=== PATIENT | female | born 1935 | race Caucasian/White ===

== ENCOUNTER 2017-01-13 12:16 | Emergency (ER) | payer MEDICARE ==
[~2017-01-13] VITALS: Ht 162.6 cm; Wt 80.0 kg
[~2017-01-13 12:16] MED LIST: CALC600T34 PO; ESTR.3 PO; FISH1000 PO; MINO50CA PO; RANI150 PO; TAB-TAB PO; TRIA37.512 PO
[2017-01-13 12:19] VITALS: BP 164/70; PULSE 82; RESP 16; TEMP 98.4; O2SAT 100
[2017-01-13] MEDS ORDERED: METH2.5T PO (12:35)
[2017-01-13] MEDS ORDERED: AMLO5TAB2 PO (12:35)
[2017-01-13] MEDS ORDERED: FOLI800T PO (12:35)
[2017-01-13] MEDS ORDERED: DOCU100C PO (12:35)
[2017-01-13] MEDS ORDERED: VITA100T65 PO (12:35)
[2017-01-13] MEDS ORDERED: VALS320T6 PO (12:35)
[2017-01-13] MEDS ORDERED: FERR200T PO (12:35)
[2017-01-13] MEDS ORDERED: CALCTAB19 PO (12:35)
[2017-01-13] MEDS ORDERED: MULTTAB67 PO (12:35)
--- NOTE | 2017-01-13 12:53 | PD ---
HPI Chief Complaint: Fall Time Seen by Provider: 12:49 Travel History International Travel<30 days: No Contact w/Intl Traveler<30days: No Traveled to known affect area: No History of Present Illness HPI This patient complains of low back pain. She lost her balance and stumbled when closing a door and fell backwards. Duration 2 hours. Severity of symptoms is moderate. She is ambulatory. She complains of some low midline back pain. She also hit the back or head but has no headache or LOC or neck pain. She takes no blood thinners. PFSH Past Medical History Autoimmune Disease: Yes (RAYNAUD'S, RA) Cancer: Yes (LYMPHOMA) Cardiovascular Problems: Yes (HTN, IRREGULAR HEART BEAT) Diabetes: No (HYPOGLYCEMIA) GERD: Yes Glaucoma: No Hepatitis: No Hiatal Hernia: No Hypertension: Yes Thyroid Disease: No Influenza Vaccination: Yes ?: Not Past Surgical History Cholecystectomy: Yes Genitourinary Surgery: Yes (BLADDER PROCEDURE) Gynecologic Surgery: Yes (HYSTERECTOMY) Hysterectomy: Yes Oral Surgery: Yes (T&A) Pacemaker: No Tonsillectomy: Yes Tympanostomy Tube: Yes Other Surgery: Yes (HEMORRHOIDECTOMY) Social History Alcohol Use: Yes ("seldom") Tobacco Use: No Substance Use: No Allergies-Medications (Allergen,Severity, Reaction): Coded Allergies: Levaquin (Verified Allergy, Intermediate, EFFECTED EYESIGHT PER PT. , 01/13) Reported Meds & Prescriptions Reported Meds & Active Scripts Active Reported Docusate Sodium 100 Mg Cap 100 Mg PO BID Feosol (Ferrous Sulfate) 200 Mg Tab 200 Mg PO DAILY Vitamin E 100 Unit Tab 100 Units PO DAILY Valsartan-Hydrochlorothiazide 320-25 Mg Tab 1 Tab PO DAILY Amlodipine (Amlodipine Besylate) 5 Mg Tab 5 Mg PO DAILY Multiple Vitamin 1 Tab 1 Tab PO DAILY Calcium 600+D 200 (Calcium Carbonate-Vitamin D) 600-200 Mg-Unit Tab 1 Tab PO DAILY Folic Acid 800 Mcg Tab 1 Mg PO DAILY Methotrexate 2.5 Mg Tab 12.5 Mg PO Q7D Review of Systems General / Constitutional: No: Fever HENT: No: Headaches Cardiovascular: No: Chest Pain or Discomfort Physical Exam Narrative NEUROLOGICAL: Awake and alert. Pupils are equal round and reactive. Motor and sensory grossly within normal limits. Five out of 5 muscle strength in all muscle groups. Normal speech. NECK: Symmetrical appearance, midline trachea. No mass or crepitus. Thyroid without enlargement, tenderness, or mass. SKIN: Focused skin assessment reveals no rash or ulcers. Skin is warm and dry. Palpation shows no induration or nodules. Back: No bruising or deformity Data Data Last Documented VS Vital Signs Date Time Temp Pulse Resp B/P Pulse Ox O2 Delivery O2 Flow Rate FiO2 01/13/17 12:19 98.4 82 16 164/70 100 Orders Spine, Lumbar - Ltd (Ap & Lat) (01/13/17 ) MDM Medical Decision Making Medical Screen Exam Complete: Yes Emergency Medical Condition: Yes Medical Record Reviewed: Yes Differential Diagnosis Compression fracture, pelvic fracture, contusion Narrative Course I have reviewed the patient's electronic medical record. Patient neurologically intact. No objective findings on exam. I reviewed her lumbar spine x-rays which show the possibility of a mild compression deformity L1. Importantly, she has no pain in this region. Her pain is much slower around L5 in the midline. I suspect this is an incidental finding I wrote her some tramadol. The patient was advised to follow up with their physician and return if they worsen. Diagnosis Primary Impression: Fall due to stumbling Qualified Code: W01.0XXA - Fall due to stumbling, initial encounter Additional Impression: Back pain at L4-L5 level Additional Instructions: The patient was advised to follow up with their physician and return if they worsen. The patient was warned about potential sedation for the medications they will receive on prescription. Med/Other Pt SpecificInfo: Prescription(s) given Scripts Tramadol 50 Mg Tab50 Mg PO Q6H PRN (PAIN) #20 TAB Ref 0 Prov:James Abreu MD 01/13/17 Disposition: 01 DISCHARGE HOME Condition: Stable James Abreu MD Jan 13, 2017 12:53
--- NOTE | 2017-01-13 13:21 | RADRPT ---
EXAM DATE/TIME: 01/13/2017 12:53 [facility] COMPARISON: No previous studies available for comparison. INDICATIONS : Lumbar spine pain post fall. MEDICAL HISTORY : Hypertension. Lymphoma. Gastroesophageal reflux disease. Raynaud's disease. irregular heart beat. diabetic. SURGICAL HISTORY : Tonsillectomy. Cholecystectomy. Hysterectomy. Hemorrohidectomy. Tympanostomy tube. Bladder procedure. Right knee arthroplasty. ENCOUNTER: Initial ACUITY: 1 day PAIN SCORE: 8/10 LOCATION: lumbar spine FINDINGS: Alignment is satisfactory. There is a mild severity compressive deformity involving L1 with slight co ncave depression of the superior endplate. No definite retropulsion. Mild disruption of the anterior cortex visible. There is mild degenerative change present throughout with disc space narrowing and sm all endplate osteophytes at all visualized levels. CONCLUSION: Mild severity compression injury at L1. Stan Jackson MD on January 13, 2017 at 13:16 Board Certified Radiologist. This report was verified electronically.
[2017-01-13] MEDS ORDERED: TRAM50TA PO (13:30)
== END 2017-01-13 14:00 | disposition home or self-care (01) ==
LOC: PHEFT 12:16
DX: M54.5 Low back pain (principal); I73.00 Raynaud's syndrome without gangrene; I10 Essential (primary) hypertension; E11.9 Type 2 diabetes mellitus without complications; K21.9 Gastro-esophageal reflux disease without esophagitis; W01.0XXA Fall on same level from slipping, tripping and stumbling without subsequent striking against object, initial encounter; Y93.89 Activity, other specified; Y92.9 Unspecified place or not applicable
CPT/HCPCS: 72100; 99283

== ENCOUNTER 2018-03-29 13:27 | Inpatient (IN) ==
--- NOTE | 2018-03-29 14:12 | ED ---
HPI General Chief complaint: Respiratory Symptoms Stated complaint: Dr sent/pneumonia on antibiotics Source: patient Mode of arrival: ambulatory Limitations: no limitations History of Present Illness HPI narrative: 82yo F with PMH of RA, B cell lymphoma (3 years ago) was told to come to the ED as per her PMD Dr. Lugo. Pt has been feeling sob for about 8 days and was evaluated by her PMD Dr. Lugo on 03/24/18 and given prednisone and azithromcyin. Pt said she finished the azithromycin and still not feeling better. She had an outpatient CT chest without contrast on 01/23/18 that showed fairly extensive pleural based disease and loculated and nonloculated pleural effusion on the right. After receiving the CT results, her PMD told her to come to the ED. Pt denies any fever, worsening cough, hemoptysis, history of PE /DVT, chest pain, n/v, abdominal pain, focal weakness or numbness. Related Data Home Medications Medication Instructions Recorded Confirmed B12 03/29/18 Multi Vitamin 03/29/18 Prilosec 20 mg PO DAILY 03/29/18 03/29/18 Probiotic 03/29/18 Stool Softener 03/29/18 Vitamin C 03/29/18 amlodipine 2.5 mg PO BID 03/29/18 03/29/18 cranberry 03/29/18 folic acid 03/29/18 iron 65 mg PO DAILY 03/29/18 03/29/18 methenamine mandelate 500 mg PO DAILY 03/29/18 03/29/18 methotrexate 2.5 mg PO WEEKLY 03/29/18 03/29/18 metoprolol succinate 25 mg PO BID 03/29/18 03/29/18 Allergies Allergy/AdvReac Type Severity Reaction Status Date / Time levofloxacin Allergy Intermediate EFFECTED Verified 03/29/18 13:55 EYESIGHT PER PT. Review of Systems ROS: all other systems reviewed are negative [facility] Medical History Medical History Cataract (Acute) GERD (gastroesophageal reflux disease) (Acute) H/O thyroid cyst (Acute) H/O: hysterectomy (Acute) Hemorrhage following tonsillectomy (Acute) Hypertension (Acute) Rheumatoid arthritis (Acute) Spleen cancer (Acute) Surgical History Surgical History H/O mastoidectomy (Acute) History of hemorrhoidectomy (Acute) Social History Social History Substance History: No History of Abuse Second Hand Smoke Exposure: No Smoking Status: Former smoker Tobacco Type: Cigarettes How Often Do You Have a Drink Containing Alcohol: Never Recent Travel in [place] within the Last 8 Weeks: No Recent Out of Country Travel within the Last 8 Weeks: No Immunization History Tetanus Immunization: <5 Years Hx Influenza Vaccine This Season: No Exam Narrative Exam Narrative: GENERAL: 82yo F not in distress. SKIN: Focused skin assessment warm/dry. HEAD: Atraumatic. Normocephalic. EYES: Pupils equal and round. No scleral icterus. No injection or drainage. ENT: No nasal bleeding or discharge. Mucous membranes pink and moist. NECK: Trachea midline. No JVD. CARDIOVASCULAR: Regular rate and rhythm. No murmur appreciated. RESPIRATORY: No accessory muscle use. Decreased breath sound in right lower lung. O2 sat 95% on RA. GASTROINTESTINAL: Abdomen soft, non-tender, nondistended. MUSCULOSKELETAL: No obvious deformities. No clubbing. No cyanosis. +Bilateral lower extremity edema. NEUROLOGICAL: Awake and alert. No obvious cranial nerve deficits. Motor grossly within normal limits. Normal speech. PSYCHIATRIC: Appropriate mood and affect; insight and judgment normal. Course Initial Documented Vital Signs Temperature 98.7 F 03/29/18 13:33 Pulse Rate 113 H 03/29/18 13:33 Respiratory Rate 20 03/29/18 13:33 Blood Pressure 151/80 H 03/29/18 13:33 Pulse Oximetry 95 03/29/18 13:33 Last Documented Vital Signs Temperature 98.6 F 03/29/18 16:00 Pulse Rate 107 H 03/29/18 16:00 Respiratory Rate 18 03/29/18 16:00 Blood Pressure 185/76 H 03/29/18 16:00 Pulse Oximetry 95 03/29/18 16:00 Medical Decision Making [facility] Narrative Medical decision making narrative: 82yo F with worsening sob for about 8 days. Pt had an outpatient CT that showed extensive pleural effusion on right that is both loculated and nonloculated. I discussed with pt's primary care physician and she is concern since pt is not getting better and wants to have the fluid drain and evaluated. Labs reviewed, WBC 12. H/H normal. Mild hyponatremia at 131. Troponin negative. CXR showed persistent right pleural effusion which appears to contain both free flowing and loculated components. Will admit for pulmonary evaluation and likely pleurocentesis. Discussed with Dr. Caballero and accepted to his service. Medical Screen Exam Complete: Yes Emergency Medical Condition: Yes Differential Diagnosis Differential Diagnosis: Exudative vs. transudative pleural effusion vs. empyema Lab Data Result diagrams: 03/29/18 14:24 03/29/18 14:24 Lab Results 03/29/18 03/29/18 03/29/18 Range/Units 14:24 14:24 14:24 CBC w Diff Auto diff final WBC 12.0 H (4.0-11.0) th/mm3 RBC 4.35 (4.00-5.30) mil/mm3 Hgb 13.2 (11.6-15.3) gm/dL Hct 39.0 (35.0-46.0) % MCV 89.7 (80.0-100.0) fL MCH 30.5 (27.0-34.0) pg MCHC 34.0 (32.0-36.0) % RDW 13.9 (11.6-17.2) % Plt Count 448 (150-450) th/mm3 MPV 8.2 (7.0-11.0) fL Neut % (Auto) 78.9 H (16.0-70.0) % Lymph % (Auto) 11.2 (9.0-44.0) % Gillespie % (Auto) 8.7 H (0.0-8.0) % Eos % (Auto) 0.7 (0.0-4.0) % Baso % (Auto) 0.5 (0.0-2.0) % Neut # (Auto) 9.5 H (1.8-7.7) th/mm3 Lymph # (Auto) 1.3 (1.0-4.8) th/mm3 Gillespie # (Auto) 1.0 H (0.0-0.9) th/mm3 Eos # (Auto) 0.1 (0.0-0.4) th/mm3 Baso # (Auto) 0.1 (0.0-0.2) th/mm3 WBC Differential . Differential Comment . PT 10.0 (9.8-11.6) sec INR 1.0 Ratio APTT 24.5 (24.3-30.1) sec Sodium 131 L (136-145) meq/L Potassium 3.4 L (3.5-5.1) meq/L Chloride 95 L (98-107) meq/L Carbon Dioxide 24.1 (21.0-32.0) meq/L Anion Gap 12 (5-15) meq/L BUN 17 (7-18) mg/dL Creatinine 0.79 (0.50-1.00) mg/dL Estimated GFR 69 L (>89) mL/min Random Glucose 126 H (74-106) mg/dL Calcium 8.7 (8.5-10.1) mg/dL Troponin I Less than 0.02 L (0.02-0.05) ng/mL Imaging Data Radiologist's impression: Chest X-Ray 03/29/18 14:06 CONCLUSION: Persistent right pleural effusion which appears to contain both free flowing and loculated components. Otherwise stable chest. ECG Data EKG Prior to Arrival: No Attestation: I personally reviewed and interpreted this ECG as follows: Interpretation: NSR 97bpm. Normal axis. MD interval 201ms. Q wave III, aVF. TWI V2. No significant ST elevation or depression. Discharge Plan Discharge Disposition Patient Disposition: 30 Still Patient Discharge Details Diagnosis: Pleural effusion Physicians Team ED Provider: Sri Newell Primary Care Provider: Michelle Lugo Attending Provider: Paxton Caballero Other Providers: Carlos Valente Status ED Status: Left Department Discharge Information Discharge Date/Time: 03/29/18 16:10
[2018-03-29 14:53] LABS: Baso # (Auto) 0.1 th/mm3 (0.0-0.2); Baso % (Auto) 0.5 % (0.0-2.0); Eos # (Auto) 0.1 th/mm3 (0.0-0.4); Eos % (Auto) 0.7 % (0.0-4.0); Hemoglobin 13.2 gm/dL (11.6-15.3); Lymph # (Auto) 1.3 th/mm3 (1.0-4.8); Lymph % (Auto) 11.2 % (9.0-44.0); Mean Corpuscular Hemoglobin 30.5 pg (27.0-34.0); Mean Corpuscular Volume 89.7 fL (80.0-100.0); Mean Platelet Volume 8.2 fL (7.0-11.0); Mono % (Auto) 8.7 % (0.0-8.0); Neut # (Auto) 9.5 th/mm3 (1.8-7.7); Neut % (Auto) 78.9 % (16.0-70.0); Platelet Count 448 th/mm3 (150-450); Red Blood Count 4.35 mil/mm3 (4.00-5.30); Red Cell Distribution Width 13.9 % (11.6-17.2)
[2018-03-29 15:01] LABS: Chloride 95 meq/L (98-107); Potassium 3.4 meq/L (3.5-5.1); Sodium 131 meq/L (136-145)
[2018-03-29 15:04] LABS: Anion Gap 12 meq/L (5-15); Blood Urea Nitrogen 17 mg/dL (7-18); Calcium 8.7 mg/dL (8.5-10.1); Carbon Dioxide 24.1 meq/L (21.0-32.0); Glucose,Random 126 mg/dL (74-106)
--- NOTE | 2018-03-29 15:05 | XR ---
EXAM DATE: 03/29/2018 2:30 PM EDT AGE/SEX: 82 years / Female INDICATIONS: Short of breath. CLINICAL DATA: This is the patient's initial encounter. Patient reports that signs and symptoms have been present for 1 day and indicates a pain score of 2/10. MEDICAL/SURGICAL HISTORY: Rheumatoid arthritis. None. COMPARISON: POI, XR CHEST PA AND LAT, 03/24/2018. . FINDINGS: Significant opacity and fluid remain evident in the right lung base. Recent CT demonstrated what appe ared to be as a both free flowing and loculated effusions. There is no significant change demonstrate d compared to the most recent chest radiograph. Left lung remains clear. Heart and mediastinal structures are stable. CONCLUSION: Persistent right pleural effusion which appears to contain both free flowing and loculated components . Otherwise stable chest. Electronically signed by: Ryan Ramachandran MD 03/29/2018 3:03 PM EDT
[2018-03-29 15:06] LABS: Activated Partial Thrombo Time 24.5 sec (24.3-30.1)
[2018-03-29 15:07] LABS: Glomerular Filtration Rate 69 mL/min (>89)
[2018-03-29] MEDS ORDERED: Potassium Chloride 25 MEQ Effervescent Tablet PO ONE (16:00)
--- NOTE | 2018-03-29 16:03 | P.HPIM ---
History of Present Illness Primary Care Physician: Michelle Lugo MD Chief Complaint: Shortness of breath History of Present Illness: The patient is an 82-year-old female with a past medical history of rheumatoid arthritis and cancer of the spleen who is presenting to the hospital with shortness of breath. The patient states that a week ago from Thursday she started to develop increased work with breathing. She says when she takes deep breath it is harder to take that breath. She has been following up with her primary care doctor who prescribed a Z-Philip and prednisone. The patient had a chest x-ray and then as that was abnormal she obtained a CT scan. Today she was called with the results of her CT scan which showed fluid or pneumonia and was told to come to the emergency department. The patient states that she had pneumonia in her right lung 10 years ago. She denies any fevers. She has not had any mucus production. She has minimal cough. She does endorse clear nasal discharge at times. Inpatient Certification: I certify that the inpatient services were ordered in accordance with Medicare regulations governing the order. This includes certification that hospital inpatient services are reasonable and necessary and in the case of services not specified as inpatient-only under 42 CFR 419.22(n), that they are appropriately provided as inpatient services in accordance to with the 2-midnight benchmark under 43 CFR 412.3(e) Estimated Total Length of Stay (Days): 2 Plans for Post Hospital Care: Not yet determined Review of Systems All other systems reviewed negative except as stated in HPI [facility] - History History Provided By: Patient - Medical History Medical History: Medical History (Last Updated 03/29/18 @ 16:03 by Paxton Caballero DO) Cataract GERD (gastroesophageal reflux disease) H/O thyroid cyst H/O: hysterectomy Hemorrhage following tonsillectomy Hypertension Rheumatoid arthritis Spleen cancer - Surgical History Surgical History: Surgical History (Last Updated 03/29/18 @ 13:53 by Mya Samano RN) H/O mastoidectomy History of hemorrhoidectomy - Tobacco History Second Hand Smoke Exposure: No Smoking Status: Former smoker - Alcohol History How Often Do You Have a Drink Containing Alcohol: 2 to 4 times a month - Substance Use History Substance History: No History of Abuse - Travel History Recent Travel in the [place] Within the Last 8 Weeks: No Recent Travel Out of the Country Within the Last 8 Weeks: No - Immunization History Tetanus Immunization: <5 Years Hx Influenza Vaccine This Season: No Medications and Allergies Active Medications: Active Medications Acetaminophen (Tylenol) 650 mg PO Q4H PRN PRN Reason: Temp > 100.4 Amlodipine Besylate (Norvasc) 5 mg PO DAILY BELINDA Ceftriaxone Sodium 1,000 mg/ (Sodium Chloride) 100 mls @ 200 mls/hr IV.SIG Q24H BELINDA Azithromycin 500 mg/ Sodium (Chloride) 250 mls @ 250 mls/hr IV.SIG Q24H BELINDA Metoprolol Tartrate (Lopressor) 25 mg PO BID BELINDA Pantoprazole Sodium (Protonix) 20 mg PO DAILY BELINDA Potassium Bicarb/Potassium Chloride (K-Lyte Cl Eff) 50 meq PO ONCE ONE Stop: 03/29/18 16:01 Last Admin: 03/29/18 15:45 Dose: 50 meq Allergies Allergy/AdvReac Type Severity Reaction Status Date / Time levofloxacin Allergy Intermediate EFFECTED Verified 03/29/18 13:55 EYESIGHT PER PT. Home Medications Medication Instructions Recorded Confirmed Type B12 03/29/18 History Multi Vitamin 03/29/18 History Prilosec 20 mg PO DAILY 03/29/18 03/29/18 History Probiotic 03/29/18 History Stool Softener 03/29/18 History Vitamin C 03/29/18 History amlodipine 2.5 mg PO BID 03/29/18 03/29/18 History cranberry 03/29/18 History folic acid 03/29/18 History iron 65 mg PO DAILY 03/29/18 03/29/18 History methenamine mandelate 500 mg PO DAILY 03/29/18 03/29/18 History methotrexate 2.5 mg PO WEEKLY 03/29/18 03/29/18 History metoprolol succinate 25 mg PO BID 03/29/18 03/29/18 History Exam Vital signs: Vital Signs 03/29/18 13:33 03/29/18 13:35 03/29/18 15:48 Temperature 98.7 F Pulse Rate 113 H 95 H 79 Respiratory Rate 20 18 Blood Pressure 151/80 H 140/81 180/73 H Pulse Oximetry 95 98 97 Intake & Output 03/28/18 03/29/18 03/29/18 18:59 06:59 18:59 Weight 80.7 kg Narrative: GENERAL: Resting comfortably. SKIN: Focused skin assessment warm/dry. HEAD: Atraumatic. Normocephalic. EYES: Pupils equal and round. No scleral icterus. No injection or drainage. ENT: No nasal bleeding or discharge. Mucous membranes pink and moist. NECK: Trachea midline. No JVD. CARDIOVASCULAR: Regular rate and rhythm. No murmur appreciated. RESPIRATORY: No accessory muscle use. Decreased breath sound in right lower lung. GASTROINTESTINAL: Abdomen soft, non-tender, nondistended. MUSCULOSKELETAL: No obvious deformities. No clubbing. No cyanosis. TR bilateral lower extremity edema. NEUROLOGICAL: Awake and alert. No obvious cranial nerve deficits. Motor grossly within normal limits. Normal speech. PSYCHIATRIC: Appropriate mood and affect; insight and judgment normal. Results - Labs CBC & Chem 7: 03/29/18 14:24 03/29/18 14:24 Labs: Short CBC 03/29/18 Range/Units 14:24 WBC 12.0 H (4.0-11.0) th/mm3 Hgb 13.2 (11.6-15.3) gm/dL Hct 39.0 (35.0-46.0) % Plt Count 448 (150-450) th/mm3 BMP 03/29/18 14:24 Sodium 131 L Potassium 3.4 L Chloride 95 L Carbon Dioxide 24.1 BUN 17 Creatinine 0.79 Calcium 8.7 Cardiac Enzymes 03/29/18 Range/Units 14:24 Troponin I Less than 0.02 L (0.02-0.05) ng/mL - Imaging Impressions Chest X-Ray 03/29/18 14:06 CONCLUSION: Persistent right pleural effusion which appears to contain both free flowing and loculated components. Otherwise stable chest. Caprini VTE Risk Assessment Caprini VTE Risk Assessment: Moderate/High Risk (score >= 2) Caprini Risk Assessment Model: Point Value = 1 Point Value = 2 Point Value = 3 Point Value = 5 Age 41-60 Minor surgery BMI > 25 kg/m2 Swollen legs Varicose veins or History of unexplained or recurrent spontaneous Oral contraceptives or hormone replacement Sepsis (< 1 month) Serious lung disease, including pneumonia (< 1 month) Abnormal pulmonary function Acute myocardial infarction Congestive heart failure (< 1 month) History of inflammatory bowel disease Medical patient at bed rest Age 61-74 Arthroscopic surgery Major open surgery (> 45 min) Laparoscopic surgery (> 45 min) Malignancy Confined to bed (> 72 hours) Immobilizing plaster cast Central venous access Age >= 75 History of VTE Family history of VTE Factor V Leiden Prothrombin 38935C Lupus anticoagulant Anticardiolipin antibodies Elevated serum homocysteine Heparin-induced thrombocytopenia Other congenital or acquired thrombophilia Stroke (< 1 month) Elective arthroplasty Hip, pelvis, or leg fracture Acute spinal cord injury (< 1 month) Prophylaxis Regimen: Total Risk Factor Score Risk Level Prophylaxis Regimen 0-1 Low Early ambulation 2 Moderate Order ONE of the following: *Sequential Compression Device (SCD) *Heparin 5000 units SQ BID 3-4 Higher Order ONE of the following medications: *Heparin 5000 units SQ TID *Enoxaparin/Lovenox 40 mg SQ daily (WT < 150 kg, CrCl > 30 mL/min) *Enoxaparin/Lovenox 30 mg SQ daily (WT < 150 kg, CrCl > 10-29 mL/min) *Enoxaparin/Lovenox 30 mg SQ BID (WT < 150 kg, CrCl > 30 mL/min) AND/OR *Sequential Compression Device (SCD) 5 or more Highest Order ONE of the following medications: *Heparin 5000 units SQ TID (Preferred with Epidurals) *Enoxaparin/Lovenox 40 mg SQ daily (WT < 150 kg, CrCl > 30 mL/min) *Enoxaparin/Lovenox 30 mg SQ daily (WT < 150 kg, CrCl > 10-29 mL/min) *Enoxaparin/Lovenox 30 mg SQ BID (WT < 150 kg, CrCl > 30 mL/min) AND *Sequential Compression Device (SCD) Assessment and Plan - Plan Sepsis/ Pleural effusion The pt has been following with her PCP for dyspnea and CT showed "fairly extensive pleural based disease and loculated and nonloculated pleural effusion on the right". She was referred to the ED. She was tachycardic with a leukocytosis of 12. -pulmonology consult. -ceftriaxone and azithromycin IV. -IVFs. -blood cultures. Hypokalemia/ Hyponatremia Likely s/t decreased PO intake. -KCL PO. -IVFs. -follow BMP. HTN Blood pressure has been elevated. -resume home amlodipine and Lopressor. -Vasotec as needed. RA On methotrexate weekly. -continue methotrexate and folate every . PPx: SCDs Code Status: Full
[2018-03-29] MEDS: amLODIPine 5 MG Tablet PO SCH (17:23)
[2018-03-29] MEDS: Azithromycin Inj 500 MG in Sodium Chlor 0.9% Inj 250 ML IV.SIG SCH (18:28)
[2018-03-29] MEDS: Metoprolol Tartrate 25 MG Tablet PO SCH (21:33)
--- NOTE | 2018-03-29 23:12 | MB ---
cc: Carlos Valente MD DATE: 03/29/2018 REQUESTING PHYSICIAN: Dr. Paxton Caballero. REASON FOR CONSULTATION: Pneumonia, pleural effusion. HISTORY OF PRESENT ILLNESS: Ms. Todd is a pleasant 82-year-old female with history of rheumatoid arthritis, cancer of the spleen. She was not feeling well for the last week or [address] Baez. She was given prednisone and Z-EJ. She did not get better. She was sent for a CT scan of the chest done, which shows pleural effusion. She was sent to [facility]. She had a chest x-ray done, which shows right-sided loculated and free pleural effusion. Her CBC shows WBC count 12.0, hemoglobin 13.2, hematocrit 39.0, MCH 18, and platelet count 448. INR 1.0. Sodium 131, potassium 3.4, chloride 95, CO2 of 24, BUN 17, creatinine 0.79. She has occasional cough, no fever, no chest pain. PAST MEDICAL HISTORY: History of rheumatoid arthritis, cancer of the spleen. PAST SURGICAL HISTORY: Mastoidectomy, hysterectomy, cholecystectomy and cyst removed from the thyroid. MEDICATIONS: She is currently taking 1. Amlodipine 5 mg a day. 2. Zithromax 500 mg. 3. Rocephin 1 g a day. 4. Vasotec p.r.n. 5. Metoprolol 25 mg twice a day. 4. Protonix 20 mg a day. ALLERGIES: LEVAQUIN. SOCIAL HISTORY: She used to work as a personal care aide. Has history of smoking, which she quit more than 40 years ago. No alcohol use. She is a , lives alone. FAMILY HISTORY: She had 2 children of her own and 5 stepchildren. REVIEW OF SYSTEMS: Normally she is up around and active. Weight is stable. No DVT found. No seizure, stroke or epilepsy. PHYSICAL EXAMINATION: GENERAL: Pleasant, elderly female, not in any acute distress. VITAL SIGNS: Blood pressure 180/75, heart rate 107, respirations 18, temperature 98.6. HEENT: Pupils are equal and reactive to light. She has a right eye cataract surgery. Oral mucosa and nasal mucosa normal. NECK: Supple. JVD not raised. CHEST: She has dull percussion, decreased breath sounds at the right base. HEART: S1, S2 normal. ABDOMEN: Benign. EXTREMITIES: No edema. IMPRESSION: 1. Right basal infiltrate versus atelectasis. 2. Right pleural effusion. 3. Hypertension. 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 5. Rheumatoid arthritis. PLAN: I discussed with the patient, will get ultrasound-guided right thoracentesis. We will send the pleural fluid for protein, glucose, LDH, cell count and differential, culture and sensitivity and cytology. Continue present antibiotics. Control blood pressure. Further treatment will depend on the course in the hospital. Thank you Dr. Paxton Caballero for this consultation. MD LILY Faulkner/elli , 07:17 PM , 07:25 PM
[2018-03-30 06:39] LABS: Baso % (Auto) 0.4 % (0.0-2.0); Eos # (Auto) 0.2 th/mm3 (0.0-0.4); Eos % (Auto) 1.8 % (0.0-4.0); Hematocrit 40.1 % (35.0-46.0); Hemoglobin 13.8 gm/dL (11.6-15.3); Lymph # (Auto) 2.1 th/mm3 (1.0-4.8); Lymph % (Auto) 17.3 % (9.0-44.0); Mean Corpuscular HGB Conc 34.4 % (32.0-36.0); Mean Corpuscular Hemoglobin 31.8 pg (27.0-34.0); Mean Corpuscular Volume 92.4 fL (80.0-100.0); Mean Platelet Volume 8.1 fL (7.0-11.0); Mono # (Auto) 0.9 th/mm3 (0.0-0.9); Mono % (Auto) 7.6 % (0.0-8.0); Neut % (Auto) 72.9 % (16.0-70.0); Platelet Count 437 th/mm3 (150-450); Red Blood Count 4.34 mil/mm3 (4.00-5.30); Red Cell Distribution Width 13.9 % (11.6-17.2); White Blood Count 12.2 th/mm3 (4.0-11.0)
[2018-03-30 06:45] LABS: Chloride 99 meq/L (98-107); Potassium 4.1 meq/L (3.5-5.1); Sodium 134 meq/L (136-145)
[2018-03-30 06:52] LABS: Anion Gap 8 meq/L (5-15); Blood Urea Nitrogen 15 mg/dL (7-18); Calcium 8.9 mg/dL (8.5-10.1); Carbon Dioxide 27.3 meq/L (21.0-32.0)
[2018-03-30 06:53] LABS: Albumin 3.4 g/dL (3.4-5.0); Glucose,Random 91 mg/dL (74-106)
[2018-03-30 06:56] LABS: Alanine Aminotransferase 21 U/L (10-53); Glomerular Filtration Rate 82 mL/min (>89)
[2018-03-30 06:57] LABS: Aspartate Aminotransferase 18 U/L (15-37)
[2018-03-30 06:58] LABS: Alkaline Phosphatase 70 U/L (45-117); Total Protein 7.1 g/dL (6.4-8.2)
[2018-03-30] MEDS ORDERED: amLODIPine 5 MG Tablet PO SCH (09:00)
--- NOTE | 2018-03-30 09:32 | XR ---
EXAM DATE: 03/30/2018 9:25 AM EDT AGE/SEX: 82 years / Female INDICATIONS: Post right thoracentesis. CLINICAL DATA: This is the patient's subsequent encounter. Patient reports that signs and symptoms h ave been present for 1 day and indicates a pain score of 0/10. MEDICAL/SURGICAL HISTORY: Hypertension. None. COMPARISON: [facility], CHEST 1V SINGLE AP, 03/29/2018. . FINDINGS: A single frontal expiratory view of the chest was performed. Significant improvement in the previousl y seen right-sided effusion. Minimal atelectatic changes remain in the right lung base. No pneumothor ax Left lung remains clear. Accounting for technique, heart size is upper limits of normal. Degenerat carin spurring of the dorsal spine. Osseous structures are otherwise intact.. CONCLUSION: 1. No pneumothorax post right-sided thoracentesis. 2. Significant improvement in the previously seen right-sided effusion. Minimal atelectatic changes remain in the right base and right perihilar distribution. Electronically signed by: Alphonse Brooks MD 03/30/2018 9:30 AM EDT
[2018-03-30] MEDS: Pantoprazole Sodium 20 MG DR Tablet PO SCH (09:38)
[2018-03-30] MEDS: amLODIPine 5 MG Tablet PO SCH (09:39)
[2018-03-30] MEDS: Metoprolol Tartrate 25 MG Tablet PO SCH ×2 (09:39→20:33)
[2018-03-30] MEDS ORDERED: amLODIPine 5 MG Tablet PO ONE (10:26)
--- NOTE | 2018-03-30 10:58 | P.PNIM ---
Subjective Interval history: The pt says she feels a lot better after the thoracentesis. She has been ambulating well. She has some pain at the thoracentesis site. No acute concerns. Physical Exam Vital signs: Vital Signs 03/29/18 13:33 03/29/18 13:35 03/29/18 15:48 Temperature 98.7 F Pulse Rate 113 H 95 H 79 Respiratory Rate 20 18 Blood Pressure 151/80 H 140/81 180/73 H Pulse Oximetry 95 98 97 03/29/18 16:00 03/29/18 20:00 03/30/18 00:00 Temperature 98.6 F 97.8 F 96 F L Pulse Rate 107 H 84 82 Respiratory Rate 18 20 20 Blood Pressure 185/76 H 146/67 H 159/74 H Pulse Oximetry 95 94 L 97 03/30/18 07:45 03/30/18 09:39 03/30/18 09:55 Temperature 96.2 F L 97 F L 97 F L Pulse Rate 80 87 90 Respiratory Rate 20 20 20 Blood Pressure 147/66 H 174/88 H 167/76 H Pulse Oximetry 97 94 L 98 Intake & Output 03/29/18 03/30/18 03/30/18 18:59 06:59 18:59 Intake Total 760 / 760 730 / 730 300 / 300 Balance 760 / 760 730 / 730 300 / 300 Weight 80.7 kg 80.4 kg Intake: IV 100 / 100 250 / 250 Azithromycin Inj 500 MG In NS 250 / 250 Inj 250 ML @ 250 mls/hr IV.SIG Q24H [facility] Rx#:[id number] Rocephin Inj 1,000 MG In NS Inj 100 / 100 100 ML @ 200 mls/hr IV.SIG Q24H [facility]INDA Rx#:[id number] Oral 660 / 660 480 / 480 300 / 300 Other: # Voids 3 4 1 # Bowel Movements 0 Narrative: GENERAL: Resting comfortably. SKIN: Focused skin assessment warm/dry. HEAD: Atraumatic. Normocephalic. EYES: Pupils equal and round. No scleral icterus. No injection or drainage. ENT: No nasal bleeding or discharge. Mucous membranes pink and moist. NECK: Trachea midline. No JVD. CARDIOVASCULAR: Regular rate and rhythm. No murmur appreciated. RESPIRATORY: No accessory muscle use. CTAB. GASTROINTESTINAL: Abdomen soft, non-tender, nondistended. MUSCULOSKELETAL: No obvious deformities. No clubbing. No cyanosis. TR bilateral lower extremity edema. NEUROLOGICAL: Awake and alert. No obvious cranial nerve deficits. Motor grossly within normal limits. Normal speech. PSYCHIATRIC: Appropriate mood and affect; insight and judgment normal. Results - Labs CBC & Chem 7: 03/30/18 05:42 03/30/18 05:42 Laboratory Results - last 24 hr 03/29/18 03/29/18 03/29/18 14:24 14:24 14:24 CBC w Diff Auto diff final WBC 12.0 H RBC 4.35 Hgb 13.2 Hct 39.0 MCV 89.7 MCH 30.5 MCHC 34.0 RDW 13.9 Plt Count 448 MPV 8.2 Neut % (Auto) 78.9 H Lymph % (Auto) 11.2 [place] % (Auto) 8.7 H Eos % (Auto) 0.7 Baso % (Auto) 0.5 Neut # (Auto) 9.5 H Lymph # (Auto) 1.3 [place] # (Auto) 1.0 H Eos # (Auto) 0.1 Baso # (Auto) 0.1 WBC Differential . Differential Comment . PT 10.0 INR 1.0 APTT 24.5 Sodium 131 L Potassium 3.4 L Chloride 95 L Carbon Dioxide 24.1 Anion Gap 12 BUN 17 Creatinine 0.79 Estimated GFR 69 L Random Glucose 126 H Calcium 8.7 Total Bilirubin AST ALT Alkaline Phosphatase Lactate Dehydrogenase Troponin I Less than 0.02 L Total Protein Albumin 03/29/18 03/30/18 03/30/18 14:34 05:42 05:42 CBC w Diff Auto diff final WBC 12.2 H RBC 4.34 Hgb 13.8 Hct 40.1 MCV 92.4 MCH 31.8 MCHC 34.4 RDW 13.9 Plt Count 437 MPV 8.1 Neut % (Auto) 72.9 H Lymph % (Auto) 17.3 [place] % (Auto) 7.6 Eos % (Auto) 1.8 Baso % (Auto) 0.4 Neut # (Auto) 9.0 H Lymph # (Auto) 2.1 [place] # (Auto) 0.9 Eos # (Auto) 0.2 Baso # (Auto) 0.0 WBC Differential . Differential Comment . PT INR APTT Sodium 134 L Potassium 4.1 Chloride 99 Carbon Dioxide 27.3 Anion Gap 8 BUN 15 Creatinine 0.68 Estimated GFR 82 L Random Glucose 91 Calcium 8.9 Total Bilirubin 0.3 AST 18 ALT 21 Alkaline Phosphatase 70 Lactate Dehydrogenase 213 Troponin I Total Protein 7.0 7.1 Albumin 3.4 - Imaging Impressions Chest X-Ray 03/29/18 14:06 CONCLUSION: Persistent right pleural effusion which appears to contain both free flowing and loculated components. Otherwise stable chest. Chest X-Ray 03/30/18 00:00 CONCLUSION: 1. No pneumothorax post right-sided thoracentesis. 2. Significant improvement in the previously seen right-sided effusion. Minimal atelectatic changes remain in the right base and right perihilar distribution. Assessment and Plan - Plan Sepsis/ Pleural effusion The pt has been following with her PCP for dyspnea and CT showed "fairly extensive pleural based disease and loculated and nonloculated pleural effusion on the right". She was referred to the ED. She was tachycardic with a leukocytosis of 12. Pulmonology and IR consults appreciated. S/p thoracentesis . -ceftriaxone and azithromycin IV. -IVFs. -blood cultures. -follow fluid studies. -follow up with pulmonology. Hypokalemia/ Hyponatremia Likely s/t decreased PO intake. -KCL PO. -IVFs. -follow BMP. Improved. HTN Blood pressure has been elevated. -resume home amlodipine and Lopressor. Increase amlodipine. -Vasotec as needed. RA On methotrexate weekly. -continue methotrexate and folate every . PPx: SCDs
[2018-03-30 11:17] LABS: RBC,Pleural Fluid 94 /mm3 (0-0)
[2018-03-30 11:18] LABS: Eosinophils,Pleural Fluid 13 %; Lymphocytes,Pleural Fluid 4 %; Neutrophils,Pleural Fluid 73 %
--- NOTE | 2018-03-30 11:38 | US ---
EXAM DATE: 03/30/2018 9:44 AM EDT AGE/SEX: 82 years / Female INDICATIONS: Right pleural effusion. CLINICAL DATA: This is the patient's initial encounter. Patient reports that signs and symptoms have been present for 1 day and indicates a pain score of 0/10. MEDICAL/SURGICAL HISTORY: Hypertension. Gastroesophageal reflux disease. Cancer Hysterectomy. Tonsillectomy. Hemorrhoidectomy. COMPARISON: No prior exams available for comparison. FLUID: Total volume of 1,200 cc of clear, yellow fluid was removed. Fluid was sent to lab for ordered studies. . . TECHNIQUE: Ultrasound guidance for thoracentesis. Thoracentesis. The risks, benefits, and alternatives to ultrasound guided thoracentesis were explained to the patien t in lay simple terms, including the risk of bleeding and infection. Written and verbal informed con sent was obtained. Appropriate area for right thoracentesis was marked under ultrasound guidance with the patient in the upright position. Overlying skin was prepped and draped in the usual sterile fashion and with local anesthetic, a dermatotomy was made with an 11 blade scalpel. A 6 [place] thoracentesis catheter was placed in the pleural space and fluid was removed. Catheter was then removed and a sterile dressing applied. There were no immediate complications. The patient tolerated the procedure well and the lef t the ultrasound suite in stable condition. Chest radiograph is to be obtained. CONCLUSION: 1. Right-sided thoracentesis as above Electronically signed by: Alphonse Brooks MD 03/30/2018 11:37 AM EDT
[2018-03-30] MEDS: Acetaminophen 325 MG Tablet PO PRN ×2 (11:46→20:33)
--- NOTE | 2018-03-30 14:23 | ECG ---
Date Performed: 03/29/2018 Time Performed: 14:19:07 PTAGE: 82 years EKG: Sinus rhythm WITH FREQUENT SUPRAVENTRICULAR PREMATURE COMPLEXES LOW QRS VOLTAGE IN PRECORDIAL LEADS ABNORMAL RHYT ECG Compared to PREVIOUS TRACING PACs are new, otherwise largely unchanged PREVIOUS TRACIN07/16/2009 12.47 DOCTOR: Lisandor Dunn Interpretating Date/Time 03/30/2018 14:21:43
[2018-03-30] MEDS ORDERED: METHOTREXATE 2.5 MG PO SCH (14:30)
[2018-03-30] MEDS: Folic Acid 1 MG Tablet PO SCH (15:32)
[2018-03-30] MEDS: Ascorbic Acid 500 MG Tablet PO SCH (15:32)
[2018-03-30] MEDS: Azithromycin Inj 500 MG in Sodium Chlor 0.9% Inj 250 ML IV.SIG SCH (16:35)
[2018-03-30] MEDS ORDERED: METHENAMINE MANDELATE 500 MG PO SCH (17:00)
--- NOTE | 2018-03-30 18:12 | P.PNPL ---
Subjective Interval history: 82 YOWF with basal infilt, pl eff, RA, h/o ca spleen Had TC [address] fluid exudative Feels much better Physical Exam Vital signs: Vital Signs 03/29/18 20:00 03/30/18 00:00 03/30/18 07:45 Temperature 97.8 F 96 F L 96.2 F L Pulse Rate 84 82 80 Respiratory Rate 20 20 20 Blood Pressure 146/67 H 159/74 H 147/66 H Pulse Oximetry 94 L 97 97 03/30/18 09:39 03/30/18 09:55 03/30/18 11:18 Temperature 97 F L 97 F L 96.2 F L Pulse Rate 87 90 72 Respiratory Rate 20 20 20 Blood Pressure 174/88 H 167/76 H 158/76 H Pulse Oximetry 94 L 98 94 L 03/30/18 12:16 03/30/18 15:31 Temperature 96.8 F L Pulse Rate 77 Respiratory Rate 18 20 Blood Pressure 136/65 Pulse Oximetry 97 Intake & Output 03/29/18 03/30/18 03/30/18 18:59 06:59 18:59 Intake Total 760 / 760 730 / 730 1630 / 1630 Balance 760 / 760 730 / 730 1630 / 1630 Weight 80.7 kg 80.4 kg Intake: IV 100 / 100 250 / 250 250 / 250 Azithromycin Inj 500 MG In NS 250 / 250 250 / 250 Inj 250 ML @ 250 mls/hr IV.SIG Q24H [facility] Rx#:[id number] Rocephin Inj 1,000 MG In NS Inj 100 / 100 100 ML @ 200 mls/hr IV.SIG Q24H [facility] Rx#:[id number] Oral 660 / 660 480 / 480 1380 / 1380 Other: # Voids 3 4 4 # Bowel Movements 0 GENERAL: Elderly WF, NAD SKIN: Warm and dry. HEAD: Normocephalic. EYES: No scleral icterus. No injection or drainage. NECK: Supple, trachea midline. No JVD or lymphadenopathy. CARDIOVASCULAR: Regular rate and rhythm without murmurs, gallops, or rubs. RESPIRATORY: Breath sounds equal bilaterally. No accessory muscle use. GASTROINTESTINAL: Abdomen soft, non-tender, nondistended. MUSCULOSKELETAL: No cyanosis, or edema. BACK: Nontender without obvious deformity. No CVA tenderness. Assessment and Plan - Plan IMPRESSION: 1. Right basal infiltrate versus atelectasis. 2. Right pleural effusion. 3. Hypertension. 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 5. Rheumatoid arthritis PLAN: Cont Abx Check pl fluid cytology Stable on RA
[2018-03-31] MEDS: Acetaminophen 325 MG Tablet PO PRN ×3 (00:38→09:51)
[2018-03-31 06:40] LABS: Baso % (Auto) 0.4 % (0.0-2.0); Eos # (Auto) 0.4 th/mm3 (0.0-0.4); Eos % (Auto) 4.8 % (0.0-4.0); Hematocrit 38.8 % (35.0-46.0); Lymph # (Auto) 1.7 th/mm3 (1.0-4.8); Lymph % (Auto) 18.5 % (9.0-44.0); Mean Corpuscular HGB Conc 33.4 % (32.0-36.0); Mean Corpuscular Hemoglobin 30.8 pg (27.0-34.0); Mean Corpuscular Volume 92.1 fL (80.0-100.0); Mean Platelet Volume 8.1 fL (7.0-11.0); Mono # (Auto) 0.8 th/mm3 (0.0-0.9); Mono % (Auto) 8.6 % (0.0-8.0); Neut # (Auto) 6.2 th/mm3 (1.8-7.7); Neut % (Auto) 67.7 % (16.0-70.0); Platelet Count 371 th/mm3 (150-450); Red Blood Count 4.22 mil/mm3 (4.00-5.30); Red Cell Distribution Width 14.4 % (11.6-17.2); White Blood Count 9.1 th/mm3 (4.0-11.0)
[2018-03-31 06:55] LABS: Calcium 8.3 mg/dL (8.5-10.1)
[2018-03-31 06:56] LABS: Carbon Dioxide 26.6 meq/L (21.0-32.0)
[2018-03-31] MEDS: Folic Acid 1 MG Tablet PO SCH (09:03)
[2018-03-31] MEDS: Pantoprazole Sodium 20 MG DR Tablet PO SCH (09:03)
[2018-03-31] MEDS: Metoprolol Tartrate 25 MG Tablet PO SCH ×2 (09:03→22:22)
[2018-03-31] MEDS: Ascorbic Acid 500 MG Tablet PO SCH (09:03)
[2018-03-31] MEDS: amLODIPine 10 MG Tablet PO SCH (09:03)
--- NOTE | 2018-03-31 12:24 | P.PNIM ---
Subjective Interval history: The patient was still feeling pain in her chest with deep breaths. She has been ambulating. She does endorse mild shortness of breath. No other acute complaints. Physical Exam Vital signs: Vital Signs 03/30/18 15:31 03/30/18 20:00 03/31/18 00:00 Temperature 96.8 F L 98.0 F 96.9 F L Pulse Rate 77 92 H 75 Respiratory Rate 20 16 16 Blood Pressure 136/65 124/61 132/64 Pulse Oximetry 97 97 96 03/31/18 08:00 Temperature 98.2 F Pulse Rate 82 Respiratory Rate 16 Blood Pressure 138/76 Pulse Oximetry 99 Intake & Output 03/30/18 03/31/18 03/31/18 18:59 06:59 18:59 Intake Total 2029 Balance 2029 Weight 80.4 kg Intake: IV 350 / 350 Azithromycin Inj 500 MG In NS 250 / 250 Inj 250 ML @ 250 mls/hr IV.SIG Q24H [facility] Rx#:[id number] Rocephin Inj 1,000 MG In NS Inj 100 / 100 100 ML @ 200 mls/hr IV.SIG Q24H [facility] Rx#:[id number] Oral 1680 / 1680 Other: # Voids 1 2 Date of Last Bowel Movement 03/29/18 03/31/18 Narrative: GENERAL: Resting comfortably. SKIN: Focused skin assessment warm/dry. HEAD: Atraumatic. Normocephalic. EYES: Pupils equal and round. No scleral icterus. No injection or drainage. ENT: No nasal bleeding or discharge. Mucous membranes pink and moist. NECK: Trachea midline. No JVD. CARDIOVASCULAR: Regular rate and rhythm. No murmur appreciated. RESPIRATORY: No accessory muscle use. CTAB. GASTROINTESTINAL: Abdomen soft, non-tender, nondistended. MUSCULOSKELETAL: No obvious deformities. No clubbing. No cyanosis. TR bilateral lower extremity edema. NEUROLOGICAL: Awake and alert. No obvious cranial nerve deficits. Motor grossly within normal limits. Normal speech. PSYCHIATRIC: Appropriate mood and affect; insight and judgment normal. Results - Labs CBC & Chem 7: 03/31/18 05:28 03/31/18 05:28 Laboratory Results - last 24 hr 03/30/18 03/30/18 03/31/18 10:42 10:42 05:28 CBC w Diff Auto diff final WBC 9.1 RBC 4.22 Hgb 13.0 Hct 38.8 MCV 92.1 MCH 30.8 MCHC 33.4 RDW 14.4 Plt Count 371 MPV 8.1 Neut % (Auto) 67.7 Lymph % (Auto) 18.5 [place] % (Auto) 8.6 H Eos % (Auto) 4.8 H Baso % (Auto) 0.4 Neut # (Auto) 6.2 Lymph # (Auto) 1.7 [place] # (Auto) 0.8 Eos # (Auto) 0.4 Baso # (Auto) 0.0 WBC Differential . Differential Comment . Sodium Potassium Chloride Carbon Dioxide Anion Gap BUN Creatinine Estimated GFR Random Glucose Calcium Magnesium Pleural pH 8.0 Pleural Total Protein 4.0 Pleural LDH 283 Pleural Glucose 100 Pleural Amylase 14 03/31/18 05:28 CBC w Diff WBC RBC Hgb Hct MCV MCH MCHC RDW Plt Count MPV Neut % (Auto) Lymph % (Auto) [place] % (Auto) Eos % (Auto) Baso % (Auto) Neut # (Auto) Lymph # (Auto) [place] # (Auto) Eos # (Auto) Baso # (Auto) WBC Differential Differential Comment Sodium 132 L Potassium 4.0 Chloride 97 L Carbon Dioxide 26.6 Anion Gap 8 BUN 15 Creatinine 0.65 Estimated GFR 87 L Random Glucose 81 Calcium 8.3 L Magnesium 2.0 Pleural pH Pleural Total Protein Pleural LDH Pleural Glucose Pleural Amylase Microbiology 03/29/18 16:42 Blood - Peripheral Aerobic Blood Culture - Preliminary No growth in 2 days 03/29/18 16:42 Blood - Peripheral Anaerobic Blood Culture - Preliminary No growth in 2 days 03/29/18 16:32 Blood - Peripheral Aerobic Blood Culture - Preliminary No growth in 2 days 03/29/18 16:32 Blood - Peripheral Anaerobic Blood Culture - Preliminary No growth in 2 days 03/30/18 10:42 Fluid - Pleural fluid Gram Stain - Final 03/30/18 10:42 Fluid - Pleural fluid Fungal Smear - Final No fungal elements seen - Procedures Thoracentesis Assessment and Plan - Plan Sepsis/ Pleural effusion The pt has been following with her PCP for dyspnea and CT showed "fairly extensive pleural based disease and loculated and nonloculated pleural effusion on the right". She was referred to the ED. She was tachycardic with a leukocytosis of 12. Pulmonology and IR consults appreciated. S/p thoracentesis . -continue ceftriaxone and azithromycin IV. -blood cultures. -follow fluid studies and cytology. -follow up with pulmonology. -Tramadol as needed for pain at thoracentesis site. -standing nebs added. Hypokalemia/ Hyponatremia Likely s/t decreased PO intake. -follow BMP. Improved. -ADAT. HTN Blood pressure has been elevated. -resume home amlodipine and Lopressor. Increase amlodipine. Well controlled at this time. -Vasotec as needed. RA On methotrexate weekly. -continue methotrexate and folate every . PPx: SCDs Discharge Planning: Anticipate d/c home when cleared by pulmonology. Awaiting thoracentesis data including cytology. Anticipate 1-2 days
[2018-03-31] MEDS: Azithromycin 250 MG Tablet PO SCH (16:23)
--- NOTE | 2018-03-31 19:14 | P.PN ---
Subjective Interval history: She is better after thoracentesis. Pl Fluid result not back yet. C/O Chest soreness. O2 sats 95 on RA Physical Exam Vital signs: Vital Signs 03/30/18 20:00 03/31/18 00:00 03/31/18 08:00 Temperature 98.0 F 96.9 F L 98.2 F Pulse Rate 92 H 75 82 Respiratory Rate 16 16 16 Blood Pressure 124/61 132/64 138/76 Pulse Oximetry 97 96 99 03/31/18 12:00 03/31/18 16:00 Temperature 98.0 F 97.2 F L Pulse Rate 78 84 Respiratory Rate 17 17 Blood Pressure 118/56 L 132/69 Pulse Oximetry 99 100 Intake & Output 03/31/18 03/31/18 04/01/18 06:59 18:59 06:59 Intake Total 1060 / 1060 Balance 1060 / 1060 Weight 80.4 kg Intake: IV 100 / 100 Rocephin Inj 1,000 MG In NS Inj 100 / 100 100 ML @ 200 mls/hr IV.SIG Q24H [facility] Rx#:[id number] Oral 960 / 960 Other: # Voids 2 5 Date of Last Bowel Movement 03/29/18 03/31/18 # Bowel Movements 1 Narrative: GENERAL: Elderly W/F Resting comfortably. SKIN: Focused skin assessment warm/dry. HEAD: Atraumatic. Normocephalic. EYES: Pupils equal and round. No scleral icterus. No injection or drainage. ENT: No nasal bleeding or discharge. Mucous membranes pink and moist. NECK: Trachea midline. No JVD. CARDIOVASCULAR: Regular rate and rhythm. No murmur appreciated. RESPIRATORY: No accessory muscle use. Mild wheezes right chest.. GASTROINTESTINAL: Abdomen soft, non-tender, nondistended. MUSCULOSKELETAL: No obvious deformities. No clubbing. No cyanosis. TR bilateral lower extremity edema. NEUROLOGICAL: Awake and alert. No obvious cranial nerve deficits. Motor grossly within normal limits. Normal speech. PSYCHIATRIC: Appropriate mood and affect. Results - Labs CBC & Chem 7: 03/31/18 05:28 03/31/18 05:28 Laboratory Results - last 24 hr 03/31/18 03/31/18 05:28 05:28 CBC w Diff Auto diff final WBC 9.1 RBC 4.22 Hgb 13.0 Hct 38.8 MCV 92.1 MCH 30.8 MCHC 33.4 RDW 14.4 Plt Count 371 MPV 8.1 Neut % (Auto) 67.7 Lymph % (Auto) 18.5 Lane % (Auto) 8.6 H Eos % (Auto) 4.8 H Baso % (Auto) 0.4 Neut # (Auto) 6.2 Lymph # (Auto) 1.7 Lane # (Auto) 0.8 Eos # (Auto) 0.4 Baso # (Auto) 0.0 WBC Differential . Differential Comment . Sodium 132 L Potassium 4.0 Chloride 97 L Carbon Dioxide 26.6 Anion Gap 8 BUN 15 Creatinine 0.65 Estimated GFR 87 L Random Glucose 81 Calcium 8.3 L Magnesium 2.0 Microbiology 03/30/18 10:42 Fluid - Pleural fluid Gram Stain - Final 03/30/18 10:42 Fluid - Pleural fluid Body Fluid Culture - Preliminary No growth in 24 hours 03/29/18 16:42 Blood - Peripheral Aerobic Blood Culture - Preliminary No growth in 2 days 03/29/18 16:42 Blood - Peripheral Anaerobic Blood Culture - Preliminary No growth in 2 days 03/29/18 16:32 Blood - Peripheral Aerobic Blood Culture - Preliminary No growth in 2 days 03/29/18 16:32 Blood - Peripheral Anaerobic Blood Culture - Preliminary No growth in 2 days 03/30/18 10:42 Fluid - Pleural fluid Fungal Smear - Final No fungal elements seen - Procedures Thoracentesis Assessment and Plan - Assessment (1) Pleural effusion Code(s): J90 - Pleural effusion, not elsewhere classified Status: Acute (2) Pneumonia Code(s): J18.9 - Pneumonia, unspecified organism Status: Acute (3) Rheumatoid arthritis Code(s): M06.9 - Rheumatoid arthritis, unspecified Status: Acute (4) Atrial fibrillation Code(s): I48.91 - Unspecified atrial fibrillation Status: Acute - Plan 1. Continue antibiotics Rocephin, Zithro 2. O2 2 L PRN 3. nebs tid , Duoneb 4. Continue BP meds 5. Rpt Chest Xray in am
[2018-04-01] MEDS: Ascorbic Acid 500 MG Tablet PO SCH (08:48)
[2018-04-01] MEDS: Pantoprazole Sodium 20 MG DR Tablet PO SCH (08:48)
[2018-04-01] MEDS: Metoprolol Tartrate 25 MG Tablet PO SCH ×2 (08:48→21:38)
[2018-04-01] MEDS: Folic Acid 1 MG Tablet PO SCH (08:49)
[2018-04-01] MEDS: amLODIPine 10 MG Tablet PO SCH (08:49)
--- NOTE | 2018-04-01 10:07 | XR ---
EXAM DATE: 04/01/2018 9:54 AM EDT AGE/SEX: 82 years / Female INDICATIONS: Right chest tenderness under breast, right thoracentesis 2 days ago. CLINICAL DATA: This is the patient's subsequent encounter. Patient reports that signs and symptoms h ave been present for 3 days and indicates a pain score of 1/10. MEDICAL/SURGICAL HISTORY: Hypertension. None. COMPARISON: [facility], CT CHEST W/O CONTRAST, 03/26/2018. . FINDINGS: Medial right lung base and perihilar parenchymal opacity is unchanged and may be mass, infiltrate or pseudotumor. Slight blunting of the costophrenic angles indicating small dependent effusions. Cardiac contours are grossly satisfactory. CONCLUSION: Basically stable abnormal chest appearance Electronically signed by: Stan Jackson MD 04/01/2018 10:06 AM EDT
--- NOTE | 2018-04-01 10:31 | P.PNIM ---
Subjective Interval history: Mrs. Pedro was afebrile with intermittent mild HTN overnight. Patient reports that she is doing much better in terms of breathing. She still has some soreness from thoracentesis but is otherwise doing well; she feels that she has improved energy relative to previously. No reported cough, chest pain, or leg swelling. Normal oral intake, bowel movements, and urination. Physical Exam Vital signs: Vital Signs 03/31/18 12:00 03/31/18 16:00 03/31/18 19:18 Temperature 98.0 F 97.2 F L Pulse Rate 78 84 84 Respiratory Rate 17 17 18 Blood Pressure 118/56 L 132/69 Pulse Oximetry 99 100 98 03/31/18 20:00 04/01/18 00:00 04/01/18 02:10 Temperature 97.6 F 97.8 F Pulse Rate 93 H 75 Respiratory Rate 16 16 18 Blood Pressure 151/65 H 140/60 Pulse Oximetry 97 98 04/01/18 07:19 04/01/18 07:20 04/01/18 08:00 Temperature 97.5 F L Pulse Rate 80 99 H Respiratory Rate 20 16 Blood Pressure 156/70 H Pulse Oximetry 98 99 Intake & Output 03/31/18 04/01/18 04/01/18 18:59 06:59 18:59 Intake Total 1060 / 1060 250 / 250 Balance 1060 / 1060 250 / 250 Intake: IV 100 / 100 Rocephin Inj 1,000 MG In NS Inj 100 / 100 100 ML @ 200 mls/hr IV.SIG Q24H [facility] Rx#:[id number] Oral 960 / 960 250 / 250 Other: # Voids 5 Date of Last Bowel Movement 03/31/18 03/31/18 # Bowel Movements 1 Narrative: GENERAL: no acute distress SKIN: no visible lesions EYES: EOM grossly I ENT: Mucous membranes pink and moist. CARDIOVASCULAR: Regular rate and rhythm without murmurs. Grossly normal perfusion. No LE edema RESPIRATORY: decreased R inferior breath sounds; otherwise CTAB. Normal rate GASTROINTESTINAL: Abdomen soft, non-tender, nondistended. MUSCULOSKELETAL: Grossly normal ROM and motor function NEUROLOGICAL: Awake and alert. No obvious cranial nerve deficits. Grossly normal peripheral motor/sensory function PSYCHIATRIC: Appropriate mood and affect Results - Labs CBC & Chem 7: 03/31/18 05:28 03/31/18 05:28 Microbiology 03/30/18 10:42 Fluid - Pleural fluid Gram Stain - Final 03/30/18 10:42 Fluid - Pleural fluid Body Fluid Culture - Preliminary No growth in 24 hours 03/29/18 16:42 Blood - Peripheral Aerobic Blood Culture - Preliminary No growth in 2 days 03/29/18 16:42 Blood - Peripheral Anaerobic Blood Culture - Preliminary No growth in 2 days 03/29/18 16:32 Blood - Peripheral Aerobic Blood Culture - Preliminary No growth in 2 days 03/29/18 16:32 Blood - Peripheral Anaerobic Blood Culture - Preliminary No growth in 2 days 03/30/18 10:42 Fluid - Pleural fluid Fungal Smear - Final No fungal elements seen - Imaging Impressions Chest X-Ray 04/01/18 00:00 CONCLUSION: Basically stable abnormal chest appearance - Procedures Thoracentesis Assessment and Plan - Assessment (1) Pleural effusion Code(s): J90 - Pleural effusion, not elsewhere classified Status: Acute (2) HTN (hypertension) Code(s): I10 - Essential (primary) hypertension Status: Chronic (3) Rheumatoid arthritis Code(s): M06.9 - Rheumatoid arthritis, unspecified Status: Chronic - Plan Mrs. Pedro is a 82 yo F with: Sepsis/ Pleural effusion The pt has been following with her PCP for dyspnea and CT showed "fairly extensive pleural based disease and loculated and nonloculated pleural effusion on the right". She was referred to the ED. She was tachycardic with a leukocytosis of 12. Pulmonology and IR consults appreciated. CXR with right pleural effusion S/p thoracentesis 03/30- 1200ml yellowish fluid removed Blood cultures negative x3 days -Continue empiric CAP treatment -continue ceftriaxone and azithromycin IV -Pulmonology consulted -follow fluid studies and cytology -Repeat CXR (04/01- stable; unchanged) -Continue TID nebs, duonebs -Tramadol as needed for pain at thoracentesis site HTN Impression: Intermittent mild HTN during hospitalization. On home Amlodipine and Lopressor -Continue PRN Vasotec -Continue Amlodipine 10mg daily (increased from home dose) -Continue Metoprolol 25mg BID RA On methotrexate weekly. -continue methotrexate and folate every . Electrolyte abnormalities Hypokalemia/ Hyponatremia on admission; resolved -follow BMP. Improved. PPx: SCDs Discharge Planning: Anticipate d/c home when cleared by pulmonology. Awaiting thoracentesis data including cytology. Anticipate 1-2 days
[2018-04-01 12:33] LABS: Baso # (Auto) 0.1 th/mm3 (0.0-0.2); Eos # (Auto) 0.2 th/mm3 (0.0-0.4); Hematocrit 38.4 % (35.0-46.0); Hemoglobin 13.1 gm/dL (11.6-15.3); Lymph # (Auto) 1.1 th/mm3 (1.0-4.8); Lymph % (Auto) 10.3 % (9.0-44.0); Mean Corpuscular HGB Conc 34.1 % (32.0-36.0); Mean Corpuscular Hemoglobin 30.4 pg (27.0-34.0); Mean Corpuscular Volume 89.1 fL (80.0-100.0); Mean Platelet Volume 7.9 fL (7.0-11.0); Mono # (Auto) 0.8 th/mm3 (0.0-0.9); Mono % (Auto) 7.5 % (0.0-8.0); Neut # (Auto) 8.8 th/mm3 (1.8-7.7); Neut % (Auto) 79.2 % (16.0-70.0); Platelet Count 410 th/mm3 (150-450); Red Blood Count 4.31 mil/mm3 (4.00-5.30); Red Cell Distribution Width 14.4 % (11.6-17.2)
[2018-04-01 12:41] LABS: Potassium 3.8 meq/L (3.5-5.1)
[2018-04-01 12:43] LABS: Calcium 8.9 mg/dL (8.5-10.1); Carbon Dioxide 28.3 meq/L (21.0-32.0)
[2018-04-01] MEDS: Azithromycin 250 MG Tablet PO SCH (16:11)
--- NOTE | 2018-04-01 17:26 | P.PN ---
Subjective Interval history: She has some right lower chest pain. No fever. CXR shows a masslike density in the Right lower zone Physical Exam Vital signs: Vital Signs 03/31/18 19:18 03/31/18 20:00 04/01/18 00:00 Temperature 97.6 F 97.8 F Pulse Rate 84 93 H 75 Respiratory Rate 18 16 16 Blood Pressure 151/65 H 140/60 Pulse Oximetry 98 97 98 04/01/18 02:10 04/01/18 07:19 04/01/18 07:20 Temperature Pulse Rate 80 Respiratory Rate 18 20 Blood Pressure Pulse Oximetry 98 04/01/18 08:00 04/01/18 12:00 04/01/18 13:17 Temperature 97.5 F L 97.6 F Pulse Rate 99 H 81 104 H Respiratory Rate 16 17 22 Blood Pressure 156/70 H 138/61 Pulse Oximetry 99 100 04/01/18 16:00 Temperature 98.5 F Pulse Rate 73 Respiratory Rate 16 Blood Pressure 137/61 Pulse Oximetry 98 Intake & Output 03/31/18 04/01/18 04/01/18 18:59 06:59 18:59 Intake Total 1060 / 1060 250 / 250 Balance 1060 / 1060 250 / 250 Intake: IV 100 / 100 Rocephin Inj 1,000 MG In NS Inj 100 / 100 100 ML @ 200 mls/hr IV.SIG Q24H BELINDA Rx#:[id number] Oral 960 / 960 250 / 250 Other: # Voids 5 Date of Last Bowel Movement 03/31/18 03/31/18 03/31/18 # Bowel Movements 1 Narrative: GENERAL: Elderly W/F alert in no acute distress SKIN: no visible lesions EYES: CORTNEY ENT: Mucous membranes pink and moist. CARDIOVASCULAR:Irregular rate and rhythm without murmurs. Grossly normal perfusion. No LE edema RESPIRATORY: decreased breath sounds at Right base. Occ Crackles. GASTROINTESTINAL: Abdomen soft, non-tender, nondistended. MUSCULOSKELETAL: Grossly normal ROM and motor function NEUROLOGICAL: Awake and alert. No obvious cranial nerve deficits. Grossly normal peripheral motor/sensory function PSYCHIATRIC: Appropriate mood and affect Results - Labs CBC & Chem 7: 04/01/18 12:19 04/01/18 12:19 Laboratory Results - last 24 hr 04/01/18 04/01/18 12:19 12:19 CBC w Diff Auto diff final WBC 11.0 RBC 4.31 Hgb 13.1 Hct 38.4 MCV 89.1 MCH 30.4 MCHC 34.1 RDW 14.4 Plt Count 410 MPV 7.9 Neut % (Auto) 79.2 H Lymph % (Auto) 10.3 [place] % (Auto) 7.5 Eos % (Auto) 2.0 Baso % (Auto) 1.0 Neut # (Auto) 8.8 H Lymph # (Auto) 1.1 [place] # (Auto) 0.8 Eos # (Auto) 0.2 Baso # (Auto) 0.1 WBC Differential . Differential Comment . Sodium 133 L Potassium 3.8 Chloride 96 L Carbon Dioxide 28.3 Anion Gap 9 BUN 12 Creatinine 0.71 Estimated GFR 78 L Random Glucose 73 L Calcium 8.9 Microbiology 03/30/18 10:42 Fluid - Pleural fluid Acid Fast Bacilli Smear - Final No acid fast bacilli seen 03/30/18 10:42 Fluid - Pleural fluid Gram Stain - Final 03/30/18 10:42 Fluid - Pleural fluid Body Fluid Culture - Preliminary No growth in 48 hours 03/29/18 16:42 Blood - Peripheral Aerobic Blood Culture - Preliminary No growth in 3 days 03/29/18 16:42 Blood - Peripheral Anaerobic Blood Culture - Preliminary No growth in 3 days 03/29/18 16:32 Blood - Peripheral Aerobic Blood Culture - Preliminary No growth in 3 days 03/29/18 16:32 Blood - Peripheral Anaerobic Blood Culture - Preliminary No growth in 3 days - Imaging Impressions Chest X-Ray 04/01/18 00:00 CONCLUSION: Basically stable abnormal chest appearance - Procedures Thoracentesis Assessment and Plan - Assessment (1) Pleural effusion Code(s): J90 - Pleural effusion, not elsewhere classified Status: Acute (2) Pneumonia Code(s): J18.9 - Pneumonia, unspecified organism Status: Acute (3) Rheumatoid arthritis Code(s): M06.9 - Rheumatoid arthritis, unspecified Status: Acute (4) Atrial fibrillation Code(s): I48.91 - Unspecified atrial fibrillation Status: Acute - Plan 1. Continue antibiotics Rocephin, Zithro 2. O2 2 L PRN 3. nebs tid , Duoneb 4. Continue BP meds 5. Will get a CT chest to evaluate RLL density 6. PFT at bedside
--- NOTE | 2018-04-01 18:27 | CT ---
EXAM DATE: 04/01/2018 6:18 PM EDT AGE/SEX: 82 years / Female INDICATIONS: Abnormal chest x-ray. Right chest discomfort. Evaluate for mass. CLINICAL DATA: This is the patient's initial encounter. Patient reports that signs and symptoms have been present for 3 days and indicates a pain score of 2/10. MEDICAL/SURGICAL HISTORY: Gastroesophageal reflux disease. Hypertension. Spleen cancer. Hysterect [place]. Hemorrhoidectomy. Cholecystectomy. Mastoidectomy. RADIATION DOSE: 9.26 CTDI (mGy) COMPARISON: POI, CT CHEST W/O CONTRAST, 03/26/2018. . TECHNIQUE: Multiple contiguous axial images were obtained through the chest without contrast. Image s were obtained in suspended respiration using multiple row detector helical technique. Using automa juan luis exposure control and adjustment of the mA and/or kV according to patient size, radiation dose was kept as low as reasonably achievable to obtain optimal diagnostic quality images. DICOM format imag e data is available electronically for review and comparison. FINDINGS: There is a 4.2 cm right mid lung mass, probably within the fissure, and multiple nodules up to 1.6 cm in size, mostly pleural-based. There is a moderate to large right pleural effusion. These findings a re not significantly changed over the past week. The right base consolidation has improved slightly. There are mediastinal lymph nodes that measure up to 17 mm in greatest short axis dimension. Heart size stable, within normal limits. Coronary artery calcification again noted. Left lung clear. CONCLUSION: 1. No significant change from one week ago. Multiple pleural-based masses of the right lung and medi astinal adenopathy, malignant until proven otherwise. Moderate to large right pleural effusion. Electronically signed by: Stan Márquez MD 04/01/2018 6:26 PM EDT
[2018-04-02] MEDS: Folic Acid 1 MG Tablet PO SCH (08:09)
[2018-04-02] MEDS: Pantoprazole Sodium 20 MG DR Tablet PO SCH (08:09)
[2018-04-02] MEDS: Metoprolol Tartrate 25 MG Tablet PO SCH ×2 (08:09→20:23)
[2018-04-02] MEDS: Ascorbic Acid 500 MG Tablet PO SCH (08:09)
[2018-04-02] MEDS: amLODIPine 10 MG Tablet PO SCH (08:10)
--- NOTE | 2018-04-02 09:32 | P.PNIM ---
Subjective Interval history: Mrs. Pedro was afebrile with stable vital signs overnight. Patient reports that she is feeling ok at this time. She does not report significant chest pain at this time. No increase in shortness of breath, abnormal bowel movements, or abnormal urination. Discussed CT lung findings. Physical Exam Vital signs: Vital Signs 04/01/18 12:00 04/01/18 13:17 04/01/18 16:00 Temperature 97.6 F 98.5 F Pulse Rate 81 104 H 73 Respiratory Rate 17 22 16 Blood Pressure 138/61 137/61 Pulse Oximetry 100 98 04/01/18 20:00 04/01/18 20:50 04/02/18 00:00 Temperature 98.4 F 97.8 F Pulse Rate 95 H 91 H 77 Respiratory Rate 20 16 20 Blood Pressure 127/58 L 110/58 L Pulse Oximetry 99 95 98 04/02/18 07:56 04/02/18 08:17 Temperature 97.7 F Pulse Rate 92 H 67 Respiratory Rate 18 18 Blood Pressure 144/71 H Pulse Oximetry 96 99 Intake & Output 04/01/18 04/02/18 04/02/18 18:59 06:59 18:59 Intake Total 820 / 820 360 / 360 Balance 820 / 820 360 / 360 Weight 79.5 kg Intake: IV 100 / 100 Rocephin Inj 1,000 MG In NS Inj 100 / 100 100 ML @ 200 mls/hr IV.SIG Q24H [facility]INDA Rx#:[id number] Oral 720 / 720 360 / 360 Other: # Voids 5 3 Date of Last Bowel Movement 03/31/18 03/31/18 03/31/18 # Bowel Movements 0 Narrative: GENERAL: no acute distress SKIN: no visible lesions EYES: EOM grossly I ENT: Mucous membranes pink and moist. CARDIOVASCULAR: Regular rate and rhythm without murmurs. Grossly normal perfusion. No LE edema RESPIRATORY: decreased R inferior breath sounds. Normal rate GASTROINTESTINAL: Abdomen soft, non-tender, nondistended MUSCULOSKELETAL: Grossly normal ROM and motor function NEUROLOGICAL: Awake and alert. No obvious cranial nerve deficits. Grossly normal peripheral motor/sensory function PSYCHIATRIC: Appropriate mood and affect Results - Labs CBC & Chem 7: 04/01/18 12:19 04/01/18 12:19 Laboratory Results - last 24 hr 09/13/18 09/13/18 12:19 12:19 CBC w Diff Auto diff final WBC 11.0 RBC 4.31 Hgb 13.1 Hct 38.4 MCV 89.1 MCH 30.4 MCHC 34.1 RDW 14.4 Plt Count 410 MPV 7.9 Neut % (Auto) 79.2 H Lymph % (Auto) 10.3 [place] % (Auto) 7.5 Eos % (Auto) 2.0 Baso % (Auto) 1.0 Neut # (Auto) 8.8 H Lymph # (Auto) 1.1 [place] # (Auto) 0.8 Eos # (Auto) 0.2 Baso # (Auto) 0.1 WBC Differential . Differential Comment . Sodium 133 L Potassium 3.8 Chloride 96 L Carbon Dioxide 28.3 Anion Gap 9 BUN 12 Creatinine 0.71 Estimated GFR 78 L Random Glucose 73 L Calcium 8.9 Microbiology 03/30/18 10:42 Fluid - Pleural fluid Gram Stain - Final 03/30/18 10:42 Fluid - Pleural fluid Body Fluid Culture - Final No growth in 72 hours (aerobically and anaerobically ) 03/30/18 10:42 Fluid - Pleural fluid Acid Fast Bacilli Smear - Final No acid fast bacilli seen 03/29/18 16:42 Blood - Peripheral Aerobic Blood Culture - Preliminary No growth in 3 days 03/29/18 16:42 Blood - Peripheral Anaerobic Blood Culture - Preliminary No growth in 3 days 03/29/18 16:32 Blood - Peripheral Aerobic Blood Culture - Preliminary No growth in 3 days 03/29/18 16:32 Blood - Peripheral Anaerobic Blood Culture - Preliminary No growth in 3 days - Imaging Impressions Chest CT 04/01/18 00:00 CONCLUSION: 1. No significant change from one week ago. Multiple pleural-based masses of the right lung and mediastinal adenopathy, malignant until proven otherwise. Moderate to large right pleural effusion. Chest X-Ray 04/01/18 00:00 CONCLUSION: Basically stable abnormal chest appearance - Procedures Thoracentesis Assessment and Plan - Assessment (1) Pleural effusion Code(s): J90 - Pleural effusion, not elsewhere classified Status: Acute (2) HTN (hypertension) Code(s): I10 - Essential (primary) hypertension Status: Chronic (3) Rheumatoid arthritis Code(s): M06.9 - Rheumatoid arthritis, unspecified Status: Chronic - Plan Mrs. Pedro is a 82 yo F with: Sepsis/ Pleural effusion The pt has been following with her PCP for dyspnea and CT showed "fairly extensive pleural based disease and loculated and nonloculated pleural effusion on the right". She was referred to the ED. She was tachycardic with a leukocytosis of 12. Pulmonology and IR consults appreciated. CXR with right pleural effusion S/p thoracentesis 03/30- 1200ml yellowish fluid removed CT chest- no significant change; multiple pleural masses of R lung and mediastinal adenopathy; malignant until proven otherwise Blood cultures negative x4 days -Continue empiric CAP treatment -continue ceftriaxone and azithromycin IV -Pulmonology consulted -follow fluid studies and cytology -CT chest findings concerning for possible malignancy -Continue TID nebs, duonebs -Tramadol as needed for pain at thoracentesis site HTN Impression: Intermittent mild HTN during hospitalization. On home Amlodipine and Lopressor -Continue PRN Vasotec -Continue Amlodipine 10mg daily (increased from home dose) -Continue Metoprolol 25mg BID RA On methotrexate weekly. -continue methotrexate and folate every . Electrolyte abnormalities Hypokalemia/ Hyponatremia on admission; resolved -follow BMP. Improved. PPx: SCDs Discharge Planning: Anticipate d/c home when cleared by pulmonology. Awaiting thoracentesis data including cytology. Anticipate 1-2 days
[2018-04-02] MEDS: Azithromycin 250 MG Tablet PO SCH (16:39)
--- NOTE | 2018-04-02 20:05 | P.PN ---
Subjective Interval history: CT chest shows Masses in Right lower chest. has an effusion again Physical Exam Vital signs: Vital Signs 04/01/18 20:50 04/02/18 00:00 04/02/18 07:56 Temperature 97.8 F 97.7 F Pulse Rate 91 H 77 92 H Respiratory Rate 16 20 18 Blood Pressure 110/58 L 144/71 H Pulse Oximetry 95 98 96 04/02/18 08:17 04/02/18 11:43 04/02/18 16:00 Temperature 98.8 F 98.6 F Pulse Rate 67 92 H 94 H Respiratory Rate 18 18 18 Blood Pressure 122/58 L 133/60 Pulse Oximetry 99 95 96 Intake & Output 04/02/18 04/02/18 04/03/18 06:59 18:59 06:59 Intake Total 360 / 360 940 / 940 Balance 360 / 360 940 / 940 Weight 79.5 kg Intake: IV 100 / 100 Rocephin Inj 1,000 MG In NS Inj 100 / 100 100 ML @ 200 mls/hr IV.SIG Q24H [facility] Rx#:[id number] Oral 360 / 360 840 / 840 Other: # Voids 3 6 Date of Last Bowel Movement 03/31/18 03/31/18 # Bowel Movements 1 Narrative: GENERAL: Elderly W/F in no acute distress SKIN: no visible lesions EYES: EOM grossly I ENT: Mucous membranes pink and moist. CARDIOVASCULAR: Regular rate and rhythm without murmurs. Grossly normal perfusion. No LE edema RESPIRATORY: decreased R inferior breath sounds.Occ Crackles . GASTROINTESTINAL: Abdomen soft, non-tender, nondistended MUSCULOSKELETAL: Grossly normal ROM and motor function NEUROLOGICAL: Awake and alert. No obvious cranial nerve deficits. No Gross motor/sensory deficits PSYCHIATRIC: Appropriate mood and affect Results - Labs CBC & Chem 7: 04/01/18 12:19 04/01/18 12:19 Microbiology 03/29/18 16:42 Blood - Peripheral Aerobic Blood Culture - Preliminary No growth in 4 days 03/29/18 16:42 Blood - Peripheral Anaerobic Blood Culture - Preliminary No growth in 4 days 03/29/18 16:32 Blood - Peripheral Aerobic Blood Culture - Preliminary No growth in 4 days 03/29/18 16:32 Blood - Peripheral Anaerobic Blood Culture - Preliminary No growth in 4 days 03/30/18 10:42 Fluid - Pleural fluid Gram Stain - Final 03/30/18 10:42 Fluid - Pleural fluid Body Fluid Culture - Final No growth in 72 hours (aerobically and anaerobically ) 03/30/18 10:42 Fluid - Pleural fluid Acid Fast Bacilli Smear - Final No acid fast bacilli seen - Procedures Thoracentesis Assessment and Plan - Assessment (1) Pleural effusion Code(s): J90 - Pleural effusion, not elsewhere classified Status: Acute (2) Pneumonia Code(s): J18.9 - Pneumonia, unspecified organism Status: Acute (3) Rheumatoid arthritis Code(s): M06.9 - Rheumatoid arthritis, unspecified Status: Acute (4) Atrial fibrillation Code(s): I48.91 - Unspecified atrial fibrillation Status: Acute (5) Mass of right lung Code(s): R91.8 - Other nonspecific abnormal finding of lung field Status: Acute - Plan 1. Continue antibiotics Rocephin 2. O2 2 L PRN 3. nebs tid , Duoneb 4. CT guided needle biopsy of lung lesions 5. Will get PFT 6. IS qid .
[2018-04-03 09:03] LABS: Baso % (Auto) 0.3 % (0.0-2.0); Eos # (Auto) 0.3 th/mm3 (0.0-0.4); Eos % (Auto) 2.9 % (0.0-4.0); Lymph # (Auto) 1.2 th/mm3 (1.0-4.8); Lymph % (Auto) 12.8 % (9.0-44.0); Mean Corpuscular HGB Conc 33.4 % (32.0-36.0); Mean Corpuscular Hemoglobin 30.2 pg (27.0-34.0); Mean Corpuscular Volume 90.6 fL (80.0-100.0); Mono # (Auto) 0.7 th/mm3 (0.0-0.9); Mono % (Auto) 7.6 % (0.0-8.0); Neut # (Auto) 7.4 th/mm3 (1.8-7.7); Neut % (Auto) 76.4 % (16.0-70.0); Platelet Count 389 th/mm3 (150-450); Red Blood Count 3.97 mil/mm3 (4.00-5.30); Red Cell Distribution Width 13.9 % (11.6-17.2); White Blood Count 9.6 th/mm3 (4.0-11.0)
[2018-04-03] MEDS: amLODIPine 10 MG Tablet PO SCH (09:03)
[2018-04-03] MEDS: Metoprolol Tartrate 25 MG Tablet PO SCH ×2 (09:03→21:44)
[2018-04-03] MEDS: Folic Acid 1 MG Tablet PO SCH (09:03)
[2018-04-03] MEDS: Pantoprazole Sodium 20 MG DR Tablet PO SCH (09:03)
[2018-04-03] MEDS: Ascorbic Acid 500 MG Tablet PO SCH (09:03)
[2018-04-03 09:09] LABS: Chloride 98 meq/L (98-107); Potassium 3.6 meq/L (3.5-5.1); Sodium 134 meq/L (136-145)
[2018-04-03 09:12] LABS: Calcium 8.4 mg/dL (8.5-10.1)
[2018-04-03 09:13] LABS: Anion Gap 10 meq/L (5-15); Blood Urea Nitrogen 13 mg/dL (7-18); Glucose,Random 89 mg/dL (74-106)
[2018-04-03 09:16] LABS: Glomerular Filtration Rate Greater Than 89 mL/min (>89)
[2018-04-03] MEDS: Azithromycin 250 MG Tablet PO SCH (16:19)
--- NOTE | 2018-04-03 18:36 | P.PN ---
Subjective Interval history: She is doing OK. will have CT Needle biopsy done Off O2 . Physical Exam Vital signs: Vital Signs 04/02/18 19:38 04/02/18 20:00 04/03/18 00:00 Temperature 99.3 F 97 F L Pulse Rate 98 H 97 H 89 Respiratory Rate 18 18 20 Blood Pressure 128/60 125/61 Pulse Oximetry 96 96 99 04/03/18 07:42 04/03/18 08:00 04/03/18 12:00 Temperature 97.1 F L 97.2 F L Pulse Rate 86 95 H Respiratory Rate 18 18 Blood Pressure 122/57 L 132/60 Pulse Oximetry 97 95 96 04/03/18 14:55 04/03/18 16:00 Temperature 98.2 F Pulse Rate 82 77 Respiratory Rate 20 18 Blood Pressure 141/65 H Pulse Oximetry 96 Intake & Output 04/02/18 04/03/18 04/03/18 18:59 06:59 18:59 Intake Total 940 / 940 480 / 480 100 / 100 Balance 940 / 940 480 / 480 100 / 100 Weight 79.6 kg Intake: IV 100 / 100 100 / 100 Rocephin Inj 1,000 MG In NS Inj 100 / 100 100 / 100 100 ML @ 200 mls/hr IV.SIG Q24H [facility]IN[facility] Rx#:[id number] Oral 840 / 840 480 / 480 Other: # Voids 6 3 3 Date of Last Bowel Movement 03/31/18 03/31/18 # Bowel Movements 1 Narrative: GENERAL: Elderly W/F in no acute distress SKIN: no visible lesions EYES:CORTNEY. No Icterus ENT: Mucous membranes pink and moist. CARDIOVASCULAR: Regular rate and rhythm without murmurs. Grossly normal perfusion. No LE edema RESPIRATORY: decreased R inferior breath sounds.Occ Crackles and wheeze . GASTROINTESTINAL: Abdomen soft, non-tender, nondistended MUSCULOSKELETAL: Grossly normal ROM and motor function NEUROLOGICAL: Awake and alert. No obvious cranial nerve deficits. No Gross motor/sensory deficits PSYCHIATRIC: Appropriate mood and affect Results - Labs CBC & Chem 7: 04/03/18 08:05 04/03/18 08:05 Laboratory Results - last 24 hr 04/03/18 04/03/18 08:05 08:05 CBC w Diff Auto diff final WBC 9.6 RBC 3.97 L Hgb 12.0 Hct 36.0 MCV 90.6 MCH 30.2 MCHC 33.4 RDW 13.9 Plt Count 389 MPV 8.0 Neut % (Auto) 76.4 H Lymph % (Auto) 12.8 [place] % (Auto) 7.6 Eos % (Auto) 2.9 Baso % (Auto) 0.3 Neut # (Auto) 7.4 Lymph # (Auto) 1.2 [place] # (Auto) 0.7 Eos # (Auto) 0.3 Baso # (Auto) 0.0 WBC Differential . Differential Comment . Sodium 134 L Potassium 3.6 Chloride 98 Carbon Dioxide 26.0 Anion Gap 10 BUN 13 Creatinine 0.58 Estimated GFR Greater than 89 Random Glucose 89 Calcium 8.4 L Microbiology 03/29/18 16:42 Blood - Peripheral Aerobic Blood Culture - Final No growth in 5 days 03/29/18 16:42 Blood - Peripheral Anaerobic Blood Culture - Final No growth in 5 days 03/29/18 16:32 Blood - Peripheral Aerobic Blood Culture - Final No growth in 5 days 03/29/18 16:32 Blood - Peripheral Anaerobic Blood Culture - Final No growth in 5 days - Procedures Thoracentesis Assessment and Plan - Assessment (1) Pleural effusion Code(s): J90 - Pleural effusion, not elsewhere classified Status: Acute (2) Pneumonia Code(s): J18.9 - Pneumonia, unspecified organism Status: Acute (3) Rheumatoid arthritis Code(s): M06.9 - Rheumatoid arthritis, unspecified Status: Acute (4) Atrial fibrillation Code(s): I48.91 - Unspecified atrial fibrillation Status: Acute (5) Mass of right lung Code(s): R91.8 - Other nonspecific abnormal finding of lung field Status: Acute - Plan 1. Continue antibiotics Rocephin 2. O2 2 L PRN 3. nebs tid , Duoneb 4. CT guided needle biopsy of lung lesions 5. Will also Repeat thoracentesis on Thursday 6. CBC,BMP
--- NOTE | 2018-04-03 21:15 | P.PNIM ---
Subjective Interval history: Mrs. Pedro was afebrile with stable vital signs overnight. Patient reports that she is doing ok at this time. She has occasional pain when she turns in bed at thoracentesis site but generally does not have pain. Patient does not report shortness of breath, abnormal bowel movements, or abnormal urination. Physical Exam Vital signs: Vital Signs 04/03/18 00:00 04/03/18 07:42 04/03/18 08:00 Temperature 97 F L 97.1 F L Pulse Rate 89 86 Respiratory Rate 20 18 Blood Pressure 125/61 122/57 L Pulse Oximetry 99 97 95 04/03/18 12:00 04/03/18 14:55 04/03/18 16:00 Temperature 97.2 F L 98.2 F Pulse Rate 95 H 82 77 Respiratory Rate 18 20 18 Blood Pressure 132/60 141/65 H Pulse Oximetry 96 96 04/03/18 19:45 04/03/18 19:46 04/03/18 20:00 Temperature 99.2 F Pulse Rate 89 93 H Respiratory Rate 18 20 Blood Pressure 129/60 Pulse Oximetry 95 97 Intake & Output 04/03/18 04/03/18 04/04/18 06:59 18:59 06:59 Intake Total 480 / 480 100 / 100 Balance 480 / 480 100 / 100 Weight 79.6 kg Intake: IV 100 / 100 Rocephin Inj 1,000 MG In NS Inj 100 / 100 100 ML @ 200 mls/hr IV.SIG Q24H [facility]INDA Rx#:[id number] Oral 480 / 480 Other: # Voids 3 3 Date of Last Bowel Movement 03/31/18 04/03/18 Narrative: GENERAL: no acute distress SKIN: no visible lesions EYES: EOM grossly I ENT: Mucous membranes pink and moist. CARDIOVASCULAR: Regular rate and rhythm without murmurs. Grossly normal perfusion. No LE edema RESPIRATORY: decreased R inferior breath sounds. Normal rate GASTROINTESTINAL: Abdomen soft, non-tender, nondistended MUSCULOSKELETAL: Grossly normal ROM and motor function NEUROLOGICAL: Awake and alert. No obvious cranial nerve deficits. Grossly normal peripheral motor/sensory function PSYCHIATRIC: Appropriate mood and affect Results - Labs CBC & Chem 7: 04/03/18 08:05 04/03/18 08:05 Laboratory Results - last 24 hr 04/03/18 04/03/18 08:05 08:05 CBC w Diff Auto diff final WBC 9.6 RBC 3.97 L Hgb 12.0 Hct 36.0 MCV 90.6 MCH 30.2 MCHC 33.4 RDW 13.9 Plt Count 389 MPV 8.0 Neut % (Auto) 76.4 H Lymph % (Auto) 12.8 [place] % (Auto) 7.6 Eos % (Auto) 2.9 Baso % (Auto) 0.3 Neut # (Auto) 7.4 Lymph # (Auto) 1.2 [place] # (Auto) 0.7 Eos # (Auto) 0.3 Baso # (Auto) 0.0 WBC Differential . Differential Comment . Sodium 134 L Potassium 3.6 Chloride 98 Carbon Dioxide 26.0 Anion Gap 10 BUN 13 Creatinine 0.58 Estimated GFR Greater than 89 Random Glucose 89 Calcium 8.4 L Microbiology 03/29/18 16:42 Blood - Peripheral Aerobic Blood Culture - Final No growth in 5 days 03/29/18 16:42 Blood - Peripheral Anaerobic Blood Culture - Final No growth in 5 days 03/29/18 16:32 Blood - Peripheral Aerobic Blood Culture - Final No growth in 5 days 03/29/18 16:32 Blood - Peripheral Anaerobic Blood Culture - Final No growth in 5 days - Procedures Thoracentesis Assessment and Plan - Assessment (1) Pleural effusion Code(s): J90 - Pleural effusion, not elsewhere classified Status: Acute (2) HTN (hypertension) Code(s): I10 - Essential (primary) hypertension Status: Chronic (3) Rheumatoid arthritis Code(s): M06.9 - Rheumatoid arthritis, unspecified Status: Chronic - Plan Mrs. Pedro is a 82 yo F with: Sepsis/ Pleural effusion The pt has been following with her PCP for dyspnea and CT showed "fairly extensive pleural based disease and loculated and non-loculated pleural effusion on the right". She was referred to the ED. She was tachycardic with a leukocytosis of 12. Pulmonology and IR consults appreciated. CXR with right pleural effusion S/p thoracentesis 03/30- 1200ml yellowish fluid removed CT chest- no significant change; multiple pleural masses of R lung and mediastinal adenopathy; malignant until proven otherwise Blood cultures negative x4 days -Continue empiric CAP treatment -continue ceftriaxone and azithromycin IV -Pulmonology consulted -follow fluid studies and cytology -CT chest findings concerning for possible malignancy -Continue TID nebs, duonebs -Plan for needle biopsy and repeat thoracentesis Thursday -Tramadol as needed for pain at thoracentesis site HTN Impression: Intermittent mild HTN during hospitalization. On home Amlodipine and Lopressor -Continue PRN Vasotec -Continue Amlodipine 10mg daily (increased from home dose) -Continue Metoprolol 25mg BID RA On methotrexate weekly. -continue methotrexate and folate every . Electrolyte abnormalities Hypokalemia/ Hyponatremia on admission; resolved -follow BMP. Improved. PPx: SCDs Discharge Planning: Anticipate d/c home when cleared by pulmonology. Awaiting thoracentesis data including cytology. Anticipate 1-2 days
[2018-04-04] MEDS: Folic Acid 1 MG Tablet PO SCH (08:57)
[2018-04-04] MEDS: amLODIPine 10 MG Tablet PO SCH (08:57)
[2018-04-04] MEDS: Ascorbic Acid 500 MG Tablet PO SCH (08:57)
[2018-04-04] MEDS: Metoprolol Tartrate 25 MG Tablet PO SCH ×2 (08:57→22:21)
[2018-04-04] MEDS: Pantoprazole Sodium 20 MG DR Tablet PO SCH (08:57)
--- NOTE | 2018-04-04 16:20 | P.PN ---
Subjective Interval history: C/O some pain in knees. Off o2. will have needle biopsy in am. Physical Exam Vital signs: Vital Signs 04/03/18 19:45 04/03/18 19:46 04/03/18 20:00 Temperature 99.2 F Pulse Rate 89 93 H Respiratory Rate 18 20 Blood Pressure 129/60 Pulse Oximetry 95 97 04/03/18 21:45 04/04/18 00:00 04/04/18 01:50 Temperature 99.6 F Pulse Rate 81 Respiratory Rate 20 18 Blood Pressure 134/63 Pulse Oximetry 97 94 L 04/04/18 02:08 04/04/18 03:43 04/04/18 08:00 Temperature 98.6 F Pulse Rate 98 H Respiratory Rate 18 18 16 Blood Pressure 122/68 Pulse Oximetry 94 L 04/04/18 12:00 04/04/18 14:28 Temperature 98.2 F Pulse Rate 80 80 Respiratory Rate 18 16 Blood Pressure 145/61 H Pulse Oximetry 96 Intake & Output 04/03/18 04/04/18 04/04/18 18:59 06:59 18:59 Intake Total 100 / 100 600 / 600 Balance 100 / 100 600 / 600 Weight 79.8 kg Intake: IV 100 / 100 Rocephin Inj 1,000 MG In NS Inj 100 / 100 100 ML @ 200 mls/hr IV.SIG Q24H [facility]INDA Rx#:[id number] Oral 600 / 600 Other: # Voids 3 4 Date of Last Bowel Movement 04/03/18 Narrative: GENERAL: Elderly W/F in no acute distress SKIN: no visible lesions EYES: CORTNEY ENT: Mucous membranes pink and moist. CARDIOVASCULAR: Regular rate and rhythm without murmurs. No LE edema RESPIRATORY: decreased R inferior breath sounds.and few wheezes. GASTROINTESTINAL: Abdomen soft, non-tender, nondistended MUSCULOSKELETAL: Grossly normal ROM and motor function NEUROLOGICAL: Awake and alert. No obvious cranial nerve deficits. Grossly normal peripheral motor/sensory function PSYCHIATRIC: Appropriate mood and affect Results - Labs CBC & Chem 7: 04/03/18 08:05 04/03/18 08:05 - Procedures Thoracentesis Assessment and Plan - Assessment (1) Pleural effusion Code(s): J90 - Pleural effusion, not elsewhere classified Status: Acute (2) Pneumonia Code(s): J18.9 - Pneumonia, unspecified organism Status: Acute (3) Rheumatoid arthritis Code(s): M06.9 - Rheumatoid arthritis, unspecified Status: Acute (4) Atrial fibrillation Code(s): I48.91 - Unspecified atrial fibrillation Status: Acute (5) Mass of right lung Code(s): R91.8 - Other nonspecific abnormal finding of lung field Status: Acute - Plan 1. Continue antibiotics IV Rocephin 2. O2 2 L PRN 3. nebs tid , Duoneb PRN 4. CT guided needle biopsy of lung lesions 5. Will also Repeat thoracentesis on Thursday 6. IS at bedside q3h.
[2018-04-04] MEDS ORDERED: Ibuprofen 600 MG Tablet PO PRN ×2 (16:53→16:58)
--- NOTE | 2018-04-04 16:58 | P.PNIM ---
Subjective Interval history: Mrs. Pedro had T 101.3F today; otherwise stable vital signs. She denies knowledge of fever, cough, or urinary symptoms. No reported chest pain or shortness of breath. Normal bowel movements. Physical Exam Vital signs: Vital Signs 04/03/18 19:45 04/03/18 19:46 04/03/18 20:00 Temperature 99.2 F Pulse Rate 89 93 H Respiratory Rate 18 20 Blood Pressure 129/60 Pulse Oximetry 95 97 04/03/18 21:45 04/04/18 00:00 04/04/18 01:50 Temperature 99.6 F Pulse Rate 81 Respiratory Rate 20 18 Blood Pressure 134/63 Pulse Oximetry 97 94 L 04/04/18 02:08 04/04/18 03:43 04/04/18 08:00 Temperature 98.6 F Pulse Rate 98 H Respiratory Rate 18 18 16 Blood Pressure 122/68 Pulse Oximetry 94 L 04/04/18 12:00 04/04/18 14:28 04/04/18 16:00 Temperature 98.2 F 101.3 F H Pulse Rate 80 80 83 Respiratory Rate 18 16 18 Blood Pressure 145/61 H 119/59 L Pulse Oximetry 96 98 Intake & Output 04/03/18 04/04/18 04/04/18 18:59 06:59 18:59 Intake Total 100 / 100 600 / 600 Balance 100 / 100 600 / 600 Weight 79.8 kg Intake: IV 100 / 100 Rocephin Inj 1,000 MG In NS Inj 100 / 100 100 ML @ 200 mls/hr IV.SIG Q24H BELINDA Rx#:[id number] Oral 600 / 600 Other: # Voids 3 4 Date of Last Bowel Movement 04/03/18 Narrative: GENERAL: no acute distress SKIN: no visible lesions EYES: EOM grossly I ENT: Mucous membranes moist. CARDIOVASCULAR: Regular rate and rhythm without murmurs. Grossly normal perfusion. No LE edema RESPIRATORY: decreased R inferior breath sounds. Normal rate GASTROINTESTINAL: Abdomen soft, non-tender, nondistended MUSCULOSKELETAL: Grossly normal ROM and motor function NEUROLOGICAL: Awake and alert. No obvious cranial nerve deficits. Grossly normal peripheral motor/sensory function PSYCHIATRIC: Appropriate mood and affect Results - Labs CBC & Chem 7: 04/03/18 08:05 04/03/18 08:05 - Procedures Thoracentesis Assessment and Plan - Assessment (1) Pleural effusion Code(s): J90 - Pleural effusion, not elsewhere classified Status: Acute (2) HTN (hypertension) Code(s): I10 - Essential (primary) hypertension Status: Chronic (3) Rheumatoid arthritis Code(s): M06.9 - Rheumatoid arthritis, unspecified Status: Chronic - Plan Mrs. Pedro is a 82 yo F with: Sepsis/ Pleural effusion The pt has been following with her PCP for dyspnea and CT showed "fairly extensive pleural based disease and loculated and non-loculated pleural effusion on the right". She was referred to the ED. She was tachycardic with a leukocytosis of 12. Pulmonology and IR consults appreciated. CXR with right pleural effusion S/p thoracentesis 03/30- 1200ml yellowish fluid removed CT chest- no significant change; multiple pleural masses of R lung and mediastinal adenopathy; malignant until proven otherwise Blood cultures negative x5 days Pleural culture negative -Continue empiric CAP treatment -continue ceftriaxone and azithromycin IV -Pulmonology consulted -follow fluid studies and cytology -CT chest findings concerning for possible malignancy -Continue TID maxime pearl -Plan for needle biopsy and repeat thoracentesis Thursday -Tramadol as needed for pain at thoracentesis site HTN Impression: Intermittent mild HTN during hospitalization. On home Amlodipine and Lopressor -Continue PRN Vasotec -Continue Amlodipine 10mg daily (increased from home dose) -Continue Metoprolol 25mg BID RA On methotrexate weekly. -continue methotrexate and folate every . Electrolyte abnormalities Hypokalemia/ Hyponatremia on admission; resolved -follow BMP. Improved. Fever Impression: 101.3 04/04. No clear etiology of symptoms. no urinary complaints. Stable breathing; no recent cough on treatment for CAP -Will check blood cultures -Will check UA -Will provide incentive spirometry PPx: SCDs Plan to initiate chemical PPX 24 hrs after biopsy Discharge Planning: Anticipate d/c home when cleared by pulmonology. Awaiting thoracentesis data including cytology. Anticipate 1-2 days
[2018-04-04] MEDS: Acetaminophen 325 MG Tablet PO PRN (17:00)
[2018-04-04] MEDS: Azithromycin 250 MG Tablet PO SCH (17:00)
[2018-04-04 22:19] LABS: Bilirubin,Urine Negative (Negative); Clarity,Urine Clear (Clear); Color,Urine Yellow (Yellw/Straw); Glucose,Urine (UA) Negative (Negative); Leukocyte Esterase,Urine Negative (Negative); Nitrite,Urine Negative (Negative); Specific Gravity,Urine Less/Equal 1.005 (1.002-1.035); Urobilinogen,Urine 0.2 mg/dL (Less than 2)
[2018-04-04] MEDS: Ibuprofen 400 MG Tablet PO PRN (22:21)
[2018-04-04 22:24] LABS: RBC,Urine 0-3 /hpf (0-3); Squamous Epithelial Cell,Urine 0-5 /hpf (0-5); WBC,Urine 0-5 /hpf (0-5)
[2018-04-05 06:47] LABS: Baso # (Auto) 0.1 th/mm3 (0.0-0.2); Baso % (Auto) 1.1 % (0.0-2.0); Eos # (Auto) 0.2 th/mm3 (0.0-0.4); Eos % (Auto) 1.9 % (0.0-4.0); Hematocrit 36.5 % (35.0-46.0); Hemoglobin 12.2 gm/dL (11.6-15.3); Lymph % (Auto) 8.7 % (9.0-44.0); Mean Corpuscular HGB Conc 33.4 % (32.0-36.0); Mean Corpuscular Hemoglobin 30.6 pg (27.0-34.0); Mean Corpuscular Volume 91.7 fL (80.0-100.0); Mean Platelet Volume 7.9 fL (7.0-11.0); Mono # (Auto) 1.2 th/mm3 (0.0-0.9); Mono % (Auto) 10.8 % (0.0-8.0); Neut # (Auto) 8.6 th/mm3 (1.8-7.7); Neut % (Auto) 77.5 % (16.0-70.0); Platelet Count 282 th/mm3 (150-450); Red Blood Count 3.98 mil/mm3 (4.00-5.30); Red Cell Distribution Width 13.9 % (11.6-17.2); White Blood Count 11.1 th/mm3 (4.0-11.0)
[2018-04-05 07:01] LABS: Chloride 96 meq/L (98-107); Potassium 3.9 meq/L (3.5-5.1); Sodium 131 meq/L (136-145)
[2018-04-05 07:08] LABS: Blood Urea Nitrogen 17 mg/dL (7-18); Glucose,Random 85 mg/dL (74-106)
[2018-04-05 07:10] LABS: Calcium 8.5 mg/dL (8.5-10.1)
[2018-04-05 07:11] LABS: Anion Gap 9 meq/L (5-15); Carbon Dioxide 25.8 meq/L (21.0-32.0); Glomerular Filtration Rate Greater Than 89 mL/min (>89)
[2018-04-05] MEDS: Pantoprazole Sodium 20 MG DR Tablet PO SCH (08:10)
[2018-04-05] MEDS: Ascorbic Acid 500 MG Tablet PO SCH (08:10)
[2018-04-05] MEDS: Metoprolol Tartrate 25 MG Tablet PO SCH ×2 (08:10→22:25)
[2018-04-05] MEDS: Folic Acid 1 MG Tablet PO SCH (08:10)
[2018-04-05] MEDS: amLODIPine 10 MG Tablet PO SCH (08:10)
[2018-04-05] MEDS: Ibuprofen 400 MG Tablet PO PRN (11:03)
--- NOTE | 2018-04-05 15:30 | P.PNIM ---
Subjective Interval history: Follow-up for pleural effusion and lung mass Patient denies any changes in symptoms. Denies any shortness of breathing. Last fever was over 24 hours ago. Spoke to Dr. Hansa Wallace and stated that after lung biopsy patient can be discharged home. Patient was unable to get lung biopsy done today because she ate this morning. Per IR she will get her lung biopsy tomorrow morning. Physical Exam Vital signs: Vital Signs 04/04/18 16:00 04/04/18 20:00 04/04/18 20:12 Temperature 101.3 F H 98.6 F Pulse Rate 83 77 80 Respiratory Rate 18 16 18 Blood Pressure 119/59 L 109/60 Pulse Oximetry 98 92 L 95 04/05/18 00:00 04/05/18 01:18 04/05/18 07:00 Temperature 97.6 F Pulse Rate 80 78 Respiratory Rate 16 18 20 Blood Pressure 102/72 Pulse Oximetry 94 L 04/05/18 07:40 04/05/18 08:00 04/05/18 12:00 Temperature 97.4 F L 97.3 F L Pulse Rate 83 82 Respiratory Rate 19 17 Blood Pressure 135/62 120/60 Pulse Oximetry 98 97 96 04/05/18 13:35 Temperature Pulse Rate 73 Respiratory Rate 20 Blood Pressure Pulse Oximetry Intake & Output 04/04/18 04/05/18 04/05/18 18:59 06:59 18:59 Intake Total 100 / 100 900 / 900 Output Total 600 / 600 Balance 100 / 100 300 / 300 Weight 79.8 kg Intake: IV 100 / 100 Rocephin Inj 1,000 MG In NS Inj 100 / 100 100 ML @ 200 mls/hr IV.SIG Q24H [facility]INDA Rx#:[id number] Oral 900 / 900 Output: Urine 600 / 600 Other: # Voids 5 3 Date of Last Bowel Movement 04/03/18 04/05/18 # Bowel Movements 2 - Constitutional no acute distress - Routine HEENT Exam Head: Present: normocephalic, atraumatic ENT: Present: mucous membranes moist - Routine Respiratory Exam Present: CTA bilaterally - Routine Cardiovascular Exam Present: RRR, S1, S2 - Routine Abdominal Exam Present: soft, normoactive bowel sounds Comments: No tenderness to palpation. - Routine Extremities Exam Comments: Negative for any edema. Results - Labs CBC & Chem 7: 04/05/18 06:15 04/05/18 06:15 Laboratory Results - last 24 hr 04/04/18 04/05/18 04/05/18 21:50 06:15 06:15 CBC w Diff Auto diff final WBC 11.1 H RBC 3.98 L Hgb 12.2 Hct 36.5 MCV 91.7 MCH 30.6 MCHC 33.4 RDW 13.9 Plt Count 282 MPV 7.9 Neut % (Auto) 77.5 H Lymph % (Auto) 8.7 L [place] % (Auto) 10.8 H Eos % (Auto) 1.9 Baso % (Auto) 1.1 Neut # (Auto) 8.6 H Lymph # (Auto) 1.0 [place] # (Auto) 1.2 H Eos # (Auto) 0.2 Baso # (Auto) 0.1 WBC Differential . Differential Comment . Sodium 131 L Potassium 3.9 Chloride 96 L Carbon Dioxide 25.8 Anion Gap 9 BUN 17 Creatinine 0.61 Estimated GFR Greater than 89 Random Glucose 85 Calcium 8.5 Urine Color Yellow Urine Clarity Clear Urine pH 6.0 Ur Specific [place] Less/equal 1.005 Urine Protein Negative Urine Glucose (UA) Negative Urine Ketones Negative Urine Occult Blood Trace Urine Nitrate Negative Urine Bilirubin Negative Urine Urobilinogen 0.2 Ur Leukocyte Esterase Negative Urine RBC 0-3 Urine WBC 0-5 Ur Squamous Epith Cells 0-5 Micro UA Comment Culture not ind Ur Microscopic Review Microscopic reviewed Urine Culture Comments Culture not ind Microbiology 04/04/18 17:55 Blood - Peripheral Aerobic Blood Culture - Preliminary No growth in 1 day 04/04/18 17:55 Blood - Peripheral Anaerobic Blood Culture - Preliminary No growth in 1 day 04/04/18 17:50 Blood - Peripheral Aerobic Blood Culture - Preliminary No growth in 1 day 04/04/18 17:50 Blood - Peripheral Anaerobic Blood Culture - Preliminary No growth in 1 day - Procedures Thoracentesis Assessment and Plan - Assessment (1) Pleural effusion Code(s): J90 - Pleural effusion, not elsewhere classified Status: Acute (2) HTN (hypertension) Code(s): I10 - Essential (primary) hypertension Status: Chronic (3) Rheumatoid arthritis Code(s): M06.9 - Rheumatoid arthritis, unspecified Status: Chronic - Plan Mrs. Pedro is a 82 yo F with: Lung mass/pleural effusion The pt has been following with her PCP for dyspnea and CT showed "fairly extensive pleural based disease and loculated and non-loculated pleural effusion on the right". She was referred to the ED. She was tachycardic with a leukocytosis of 12. Pulmonology and IR consults appreciated. CXR with right pleural effusion S/p thoracentesis 03/30- 1200ml yellowish fluid removed CT chest- no significant change; multiple pleural masses of R lung and mediastinal adenopathy; malignant until proven otherwise Blood cultures negative x5 days Pleural culture negative -Continue empiric CAP treatment -continue ceftriaxone and azithromycin IV -Pulmonology consulted -follow fluid studies and cytology -CT chest findings concerning for possible malignancy -Continue TID nebs, duonebs -Patient scheduled for thoracentesis tomorrow for lung biopsy. Questionable sepsis -Patient being treated empirically for pneumonia. Most likely secondary to lung mass. Continue full treatment for community acquired pneumonia. HTN Impression: Intermittent mild HTN during hospitalization. On home Amlodipine and Lopressor -Continue PRN Vasotec -Continue Amlodipine 10mg daily (increased from home dose) -Continue Metoprolol 25mg BID RA On methotrexate weekly. -continue methotrexate and folate every . Electrolyte abnormalities Hypokalemia/ Hyponatremia on admission; resolved -follow BMP. Improved. Fever Impression: 101.3 04/04. No clear etiology of symptoms. no urinary complaints. Stable breathing; no recent cough on treatment for CAP -Clinically patient looks very good. She does not look toxic. Workup has been negative. Most likely secondary to lung mass. PPx: SCDs Plan to initiate chemical PPX 24 hrs after biopsy Dispo: Patient can be discharged after lung biopsy.
[2018-04-05] MEDS: Azithromycin 250 MG Tablet PO SCH (17:06)
--- NOTE | 2018-04-05 18:55 | P.PN ---
Subjective Interval history: Will go for Needle biopsy of lung nodules in am. Feels OK. Off O2 . No back pain now and on Motrin. Physical Exam Vital signs: Vital Signs 04/04/18 20:00 04/04/18 20:12 04/05/18 00:00 Temperature 98.6 F 97.6 F Pulse Rate 77 80 80 Respiratory Rate 16 18 16 Blood Pressure 109/60 102/72 Pulse Oximetry 92 L 95 94 L 04/05/18 01:18 04/05/18 07:00 04/05/18 07:40 Temperature Pulse Rate 78 Respiratory Rate 18 20 Blood Pressure Pulse Oximetry 98 04/05/18 08:00 04/05/18 12:00 04/05/18 13:35 Temperature 97.4 F L 97.3 F L Pulse Rate 83 82 73 Respiratory Rate 19 17 20 Blood Pressure 135/62 120/60 Pulse Oximetry 97 96 04/05/18 16:00 Temperature 98.0 F Pulse Rate 107 H Respiratory Rate 18 Blood Pressure 125/60 Pulse Oximetry 97 Intake & Output 04/04/18 04/05/18 04/05/18 18:59 06:59 18:59 Intake Total 100 / 100 900 / 900 1060 / 1060 Output Total 600 / 600 Balance 100 / 100 300 / 300 1060 / 1060 Weight 79.8 kg Intake: IV 100 / 100 100 / 100 Rocephin Inj 1,000 MG In NS Inj 100 / 100 100 / 100 100 ML @ 200 mls/hr IV.SIG Q24H [facility] Rx#:[id number] Oral 900 / 900 960 / 960 Output: Urine 600 / 600 Other: # Voids 5 3 5 Date of Last Bowel Movement 04/03/18 04/05/18 # Bowel Movements 2 1 Narrative: GENERAL: Elderly W/F in no acute distress SKIN: no visible lesions EYES: EOM grossly I ENT: Mucous membranes moist. CARDIOVASCULAR: Regular rate and rhythm without murmurs. Grossly normal perfusion. No LE edema RESPIRATORY: decreased R inferior breath sounds.Occ Crackles . GASTROINTESTINAL: Abdomen soft, non-tender, nondistended MUSCULOSKELETAL: Grossly normal ROM and motor function NEUROLOGICAL: Awake and alert. No obvious cranial nerve deficits. Grossly normal peripheral motor/sensory function PSYCHIATRIC: Appropriate mood and affect Results - Labs CBC & Chem 7: 04/05/18 06:15 04/05/18 06:15 Laboratory Results - last 24 hr 04/04/18 04/05/18 04/05/18 21:50 06:15 06:15 CBC w Diff Auto diff final WBC 11.1 H RBC 3.98 L Hgb 12.2 Hct 36.5 MCV 91.7 MCH 30.6 MCHC 33.4 RDW 13.9 Plt Count 282 MPV 7.9 Neut % (Auto) 77.5 H Lymph % (Auto) 8.7 L [place] % (Auto) 10.8 H Eos % (Auto) 1.9 Baso % (Auto) 1.1 Neut # (Auto) 8.6 H Lymph # (Auto) 1.0 [place] # (Auto) 1.2 H Eos # (Auto) 0.2 Baso # (Auto) 0.1 WBC Differential . Differential Comment . Sodium 131 L Potassium 3.9 Chloride 96 L Carbon Dioxide 25.8 Anion Gap 9 BUN 17 Creatinine 0.61 Estimated GFR Greater than 89 Random Glucose 85 Calcium 8.5 Urine Color Yellow Urine Clarity Clear Urine pH 6.0 Ur Specific [place] Less/equal 1.005 Urine Protein Negative Urine Glucose (UA) Negative Urine Ketones Negative Urine Occult Blood Trace Urine Nitrate Negative Urine Bilirubin Negative Urine Urobilinogen 0.2 Ur Leukocyte Esterase Negative Urine RBC 0-3 Urine WBC 0-5 Ur Squamous Epith Cells 0-5 Micro UA Comment Culture not ind Ur Microscopic Review Microscopic reviewed Urine Culture Comments Culture not ind Microbiology 04/04/18 17:55 Blood - Peripheral Aerobic Blood Culture - Preliminary No growth in 1 day 04/04/18 17:55 Blood - Peripheral Anaerobic Blood Culture - Preliminary No growth in 1 day 04/04/18 17:50 Blood - Peripheral Aerobic Blood Culture - Preliminary No growth in 1 day 04/04/18 17:50 Blood - Peripheral Anaerobic Blood Culture - Preliminary No growth in 1 day - Procedures Thoracentesis Assessment and Plan - Assessment (1) Pleural effusion Code(s): J90 - Pleural effusion, not elsewhere classified Status: Acute (2) Pneumonia Code(s): J18.9 - Pneumonia, unspecified organism Status: Acute (3) Rheumatoid arthritis Code(s): M06.9 - Rheumatoid arthritis, unspecified Status: Acute (4) Atrial fibrillation Code(s): I48.91 - Unspecified atrial fibrillation Status: Acute (5) Mass of right lung Code(s): R91.8 - Other nonspecific abnormal finding of lung field Status: Acute - Plan 1. D/C IV Rocephin 2. O2 2 L PRN 3. nebs tid , Duoneb PRN 4. CT guided needle biopsy of lung lesions in am 5. CBC, Coag Profile 6. IS at bedside q3h.
[2018-04-06] MEDS ORDERED: fentaNYL Citrate Inj 100 MCG/2 ML Ampul ONE ×2 (08:50→11:00)
--- NOTE | 2018-04-06 09:24 | P.RAD ---
Post Procedure Progress Note - Pre Procedure Diagnosis (1) Mass of right lung - Post Procedure Diagnosis (1) Mass of right lung - Procedure Information Procedure Date: 04/06/18 Supervising Radiologist: Christopher Thrasher MD Estimated blood loss (mL): 0 Anesthesia: Local, Conscious Sedation - Plan of Activity Patient to Unit: PACU Patient Condition: Fair Additional Comments: right middle lobe mass biopsy completed 2 core samples obtained. Samples sent for pathology. Tiny Pneumothorax on follow up CT. CXR in 2 hours pending See PACS Report for procedural detail/treatment.
[2018-04-06] MEDS ORDERED: Lidocaine 1%/Epinephrine 1:100,000 Inj 30 ML Vial I-DERMAL ONE ×2 (09:34→11:57)
[2018-04-06] MEDS: amLODIPine 10 MG Tablet PO SCH (10:00)
[2018-04-06] MEDS: Metoprolol Tartrate 25 MG Tablet PO SCH ×2 (10:00→20:42)
[2018-04-06] MEDS: Pantoprazole Sodium 20 MG DR Tablet PO SCH (10:00)
[2018-04-06] MEDS: Ascorbic Acid 500 MG Tablet PO SCH (10:00)
[2018-04-06] MEDS: Folic Acid 1 MG Tablet PO SCH (10:00)
--- NOTE | 2018-04-06 10:32 | XR ---
EXAM DATE: 04/06/2018 10:22 AM EDT AGE/SEX: 82 years / Female INDICATIONS: Post right lung biopsy. CLINICAL DATA: This is the patient's subsequent encounter. Patient reports that signs and symptoms h ave been present for 3 days and indicates a pain score of 0/10. MEDICAL/SURGICAL HISTORY: Hypertension. None. COMPARISON: [facility], CHEST EXPIRATION ONLY, 03/30/2018. . FINDINGS: Expiratory portable view of the chest demonstrates an 11 mm pneumothorax at the right apex status pos t right lung biopsy. Opacity in the right lower lung is stable. There is some blunting of the costoph renic angle with meniscal interface. The left lung is clear. No evidence of mediastinal shift. CONCLUSION: 11 mm right pneumothorax. Electronically signed by: Alex Yuan MD 04/06/2018 10:31 AM EDT
--- NOTE | 2018-04-06 11:47 | P.RAD ---
Post CT Procedure Prog Note - Pre Procedure Diagnosis (1) Pneumothorax - Post Procedure Diagnosis (1) Pneumothorax - Procedure Information Procedure Date: 04/06/18 Supervising Radiologist: Christopher Thrasher MD Estimated blood loss (mL): 2 Anesthesia: Local, Conscious Sedation - Plan of Activity Patient to Unit: PACU Patient condition: Fair Additional Comments: Post biopsy chest xray demonstrated a right pneumothorax. Right chest tube placed without difficulty See PACS Report for procedural detail/treatment.
--- NOTE | 2018-04-06 13:10 | XR ---
EXAM DATE: 04/06/2018 1:02 PM EDT AGE/SEX: 82 years / Female INDICATIONS: Post right lung biopsy and chest tube placement. CLINICAL DATA: This is the patient's subsequent encounter. Patient reports that signs and symptoms h ave been present for 1 day and indicates a pain score of 0/10. MEDICAL/SURGICAL HISTORY: Hypertension. None. COMPARISON: [facility], CHEST EXPIRATION ONLY, 04/06/2018. . FINDINGS: Interval placement of right chest catheter with pigtail loop the mid to upper chest. There is reexpan pat of the right lung and no residual pneumothorax. Mild subcutaneous emphysema about the right ches t wall. Stable right lower lung. No evidence of mediastinal shift. CONCLUSION: Interval placement of right chest vascular with resolution of pneumothorax. Electronically signed by: Alex Yuan MD 04/06/2018 1:08 PM EDT
--- NOTE | 2018-04-06 14:31 | P.PNIM ---
Subjective Interval history: Follow-up for right lung mass Patient had right lung biopsy by IR with complication of pneumothorax. She had chest tube placed. I saw patient after she had procedure done and she is asking for oral intake. Patient feels that her breathing has improved drastically after the procedure. She has no other complaints. At the moment she denies any shortness of breathing or cough. Physical Exam Vital signs: Vital Signs 04/05/18 16:00 04/05/18 19:13 04/05/18 20:00 Temperature 98.0 F 98.6 F Pulse Rate 107 H 89 101 H Respiratory Rate 18 16 16 Blood Pressure 125/60 110/59 L Pulse Oximetry 97 95 96 04/06/18 00:00 04/06/18 07:28 04/06/18 08:38 Temperature 98.2 F 97.8 F Pulse Rate 76 96 H 106 H Respiratory Rate 16 18 18 Blood Pressure 119/54 L 170/73 H Pulse Oximetry 93 L 94 L 96 Intake & Output 04/05/18 04/06/18 04/06/18 18:59 06:59 18:59 Intake Total 1060 / 1060 200 / 200 Balance 1060 / 1060 200 / 200 Weight 79.8 kg Intake: IV 100 / 100 Rocephin Inj 1,000 MG In NS Inj 100 / 100 100 ML @ 200 mls/hr IV.SIG Q24H [facility]DA Rx#:[id number] Oral 960 / 960 200 / 200 Other: # Voids 5 3 Date of Last Bowel Movement 04/05/18 04/05/18 # Bowel Movements 1 - Constitutional no acute distress - Routine HEENT Exam ENT: Present: mucous membranes moist - Routine Respiratory Exam Present: CTA bilaterally - Routine Cardiovascular Exam Present: RRR, S1, S2 Comments: No rubs murmurs or gallops. - Routine Abdominal Exam Present: soft, normoactive bowel sounds Comments: Nontender to palpation. Negative peritoneal signs. - Routine Extremities Exam Comments: Negative for any lower extremity edema. - Routine Neurological Exam Present: alert, oriented X3 Results - Labs CBC & Chem 7: 04/05/18 06:15 04/05/18 06:15 Microbiology 03/30/18 10:42 Fluid - Pleural fluid Acid Fast Bacilli Smear - Final No acid fast bacilli seen 03/30/18 10:42 Fluid - Pleural fluid Mycobacterial Culture - Preliminary No growth in 1 week 03/30/18 10:42 Fluid - Pleural fluid Fungal Smear - Final No fungal elements seen 03/30/18 10:42 Fluid - Pleural fluid Fungal Culture - Preliminary No growth in 1 week 04/04/18 17:55 Blood - Peripheral Aerobic Blood Culture - Preliminary No growth in 2 days 04/04/18 17:55 Blood - Peripheral Anaerobic Blood Culture - Preliminary No growth in 2 days 04/04/18 17:50 Blood - Peripheral Aerobic Blood Culture - Preliminary No growth in 2 days 04/04/18 17:50 Blood - Peripheral Anaerobic Blood Culture - Preliminary No growth in 2 days - Imaging Impressions Chest X-Ray 04/06/18 09:21 CONCLUSION: 11 mm right pneumothorax. Chest X-Ray 04/06/18 11:44 CONCLUSION: Interval placement of right chest vascular with resolution of pneumothorax. - Procedures Thoracentesis Assessment and Plan - Assessment (1) Pleural effusion Code(s): J90 - Pleural effusion, not elsewhere classified Status: Acute (2) HTN (hypertension) Code(s): I10 - Essential (primary) hypertension Status: Chronic (3) Rheumatoid arthritis Code(s): M06.9 - Rheumatoid arthritis, unspecified Status: Chronic - Plan Mrs. Pedro is a 82 yo F with: Lung mass/pleural effusion The pt has been following with her PCP for dyspnea and CT showed "fairly extensive pleural based disease and loculated and non-loculated pleural effusion on the right". She was referred to the ED. She was tachycardic with a leukocytosis of 12. Pulmonology and IR consults appreciated. CXR with right pleural effusion S/p thoracentesis 03/30- 1200ml yellowish fluid removed CT chest- no significant change; multiple pleural masses of R lung and mediastinal adenopathy; malignant until proven otherwise Blood cultures negative x5 days Pleural culture negative -Continue empiric CAP treatment -continue ceftriaxone and azithromycin IV -Pulmonology consulted -follow fluid studies and cytology -CT chest findings concerning for possible malignancy -Continue TID maxime pearl -Patient had lung biopsy done today by Dr. Thrasher compl right pneumothorax. Chest tube was also placed. Management of chest tube per IR. Questionable sepsis -Patient being treated empirically for pneumonia. Most likely secondary to lung mass. Continue full treatment for community acquired pneumonia. HTN Impression: Intermittent mild HTN during hospitalization. On home Amlodipine and Lopressor -Continue PRN Vasotec -Continue Amlodipine 10mg daily (increased from home dose) -Continue Metoprolol 25mg BID RA On methotrexate weekly. -continue methotrexate and folate every . Electrolyte abnormalities Hypokalemia/ Hyponatremia on admission; resolved -follow BMP. Improved. PPx: SCDs Plan to initiate chemical PPX 24 hrs after biopsy Dispo: Once chest tube is removed and patient is medically stable she can be discharged home.
[2018-04-06] MEDS: Azithromycin 250 MG Tablet PO SCH (17:36)
[2018-04-06] MEDS: Morphine Sulfate Inj 2 MG/ML Vial IV.PUSH PRN ×2 (18:03→22:10)
--- NOTE | 2018-04-06 20:18 | P.PN ---
Subjective Interval history: F/u lung mass s/p bx with ptx Physical Exam Vital signs: Vital Signs 04/06/18 00:00 04/06/18 07:28 04/06/18 08:38 Temperature 98.2 F 97.8 F Pulse Rate 76 96 H 106 H Respiratory Rate 16 18 18 Blood Pressure 119/54 L 170/73 H Pulse Oximetry 93 L 94 L 96 04/06/18 14:52 04/06/18 16:17 Temperature 97.1 F L Pulse Rate 93 H 91 H Respiratory Rate 18 16 Blood Pressure 108/59 L Pulse Oximetry 97 95 Intake & Output 04/06/18 04/06/18 04/07/18 06:59 18:59 06:59 Intake Total 200 / 200 750 / 750 Output Total 940 / 940 Balance 200 / 200 -190 / -190 Weight 79.8 kg Intake: IV 100 / 100 Rocephin Inj 1,000 MG In NS Inj 100 / 100 100 ML @ 200 mls/hr IV.SIG Q24H BELINDA Rx#:[id number] Oral 200 / 200 650 / 650 Output: Chest Tube Drainage 940 / 940 Right 940 / 940 Other: # Voids 3 1 Date of Last Bowel Movement 04/05/18 Results - Labs CBC & Chem 7: 04/05/18 06:15 04/05/18 06:15 Microbiology 03/30/18 10:42 Fluid - Pleural fluid Acid Fast Bacilli Smear - Final No acid fast bacilli seen 03/30/18 10:42 Fluid - Pleural fluid Mycobacterial Culture - Preliminary No growth in 1 week 03/30/18 10:42 Fluid - Pleural fluid Fungal Smear - Final No fungal elements seen 03/30/18 10:42 Fluid - Pleural fluid Fungal Culture - Preliminary No growth in 1 week 04/04/18 17:55 Blood - Peripheral Aerobic Blood Culture - Preliminary No growth in 2 days 04/04/18 17:55 Blood - Peripheral Anaerobic Blood Culture - Preliminary No growth in 2 days 04/04/18 17:50 Blood - Peripheral Aerobic Blood Culture - Preliminary No growth in 2 days 04/04/18 17:50 Blood - Peripheral Anaerobic Blood Culture - Preliminary No growth in 2 days - Imaging Impressions ITS Impressions Thoracentesis Ultrasound 03/30/18 00:00 CONCLUSION: 1. Right-sided thoracentesis as above Chest CT 04/01/18 00:00 CONCLUSION: 1. No significant change from one week ago. Multiple pleural-based masses of the right lung and mediastinal adenopathy, malignant until proven otherwise. Moderate to large right pleural effusion. Chest X-Ray 04/06/18 11:44 CONCLUSION: Interval placement of right chest vascular with resolution of pneumothorax. - Procedures thoracentesis of pleural effusion Right lung mass biopsy Chest tube placement 2/2 pneumothorax Assessment and Plan - Assessment (1) Pleural effusion Code(s): J90 - Pleural effusion, not elsewhere classified Status: Acute (2) HTN (hypertension) Code(s): I10 - Essential (primary) hypertension Status: Chronic (3) Rheumatoid arthritis Code(s): M06.9 - Rheumatoid arthritis, unspecified Status: Chronic - Plan Mrs. Pedro is a 82 yo F with: Lung mass/pleural effusion The pt has been following with her PCP for dyspnea and CT showed "fairly extensive pleural based disease and loculated and non-loculated pleural effusion on the right". She was referred to the ED. She was tachycardic with a leukocytosis of 12. Pulmonology and IR consults appreciated. CXR with right pleural effusion S/p thoracentesis 03/30- 1200ml yellowish fluid removed CT chest- no significant change; multiple pleural masses of R lung and mediastinal adenopathy; malignant until proven otherwise Blood cultures negative x5 days Pleural culture negative -Continue empiric CAP treatment -continue ceftriaxone and azithromycin IV -Pulmonology consulted -follow fluid studies and cytology -CT chest findings concerning for possible malignancy -Continue TID nebs, duonebs -Patient had lung biopsy done by Dr. Thrasher complicated by right pneumothorax. Chest tube was placed. Management of chest tube per IR. Questionable sepsis -Patient being treated empirically for pneumonia. Most likely secondary to lung mass. Continue full treatment for community acquired pneumonia. HTN Impression: Intermittent mild HTN during hospitalization. On home Amlodipine and Lopressor -Continue PRN Vasotec -Continue Amlodipine 10mg daily (increased from home dose) -Continue Metoprolol 25mg BID RA On methotrexate weekly. -continue methotrexate and folate every . Electrolyte abnormalities Hypokalemia/ Hyponatremia on admission; resolved -follow BMP. Improved. PPx: SCDs Plan to initiate chemical PPX 24 hrs after biopsy Dispo: Once chest tube is removed and patient is medically stable she can be discharged home.
[2018-04-07] MEDS: Morphine Sulfate Inj 2 MG/ML Vial IV.PUSH PRN ×2 (02:27→06:39)
[2018-04-07] MEDS: amLODIPine 10 MG Tablet PO SCH (08:43)
[2018-04-07] MEDS: Metoprolol Tartrate 25 MG Tablet PO SCH ×2 (08:43→21:53)
[2018-04-07] MEDS: Lactobacillus Acidophilus/L. Spores Tablet PO SCH (09:06)
[2018-04-07] MEDS: Folic Acid 1 MG Tablet PO SCH (09:06)
[2018-04-07] MEDS: Pantoprazole Sodium 20 MG DR Tablet PO SCH (09:06)
[2018-04-07] MEDS: Ascorbic Acid 500 MG Tablet PO SCH (09:06)
--- NOTE | 2018-04-07 11:48 | XR ---
EXAM DATE: 04/07/2018 11:38 AM EDT AGE/SEX: 82 years / Female INDICATIONS: Pneumothorax. CLINICAL DATA: This is the patient's subsequent encounter. Patient reports that signs and symptoms h ave been present for 2 days and indicates a pain score of 1/10. MEDICAL/SURGICAL HISTORY: Hypertension. . right lung biopsy COMPARISON: [facility], CT BIOPSY LUNG RIGHT, 04/06/2018. . FINDINGS: No recurrent pneumothorax is noted on the right. A small chest tube remains in good position within t he right midlung field. Right-sided pulmonary masses are stable. The heart is stable. The left lung i s unchanged. CONCLUSION: No recurrent pneumothorax noted on the right. Electronically signed by: Orion Butts MD 04/07/2018 11:47 AM EDT
--- NOTE | 2018-04-07 14:15 | P.PN ---
Subjective Interval history: Follow-up pneumothorax. Complains of mild right chest pain where she has chest tube which is on suction. Denies shortness of breath. Repeat chest x-ray without pneumothorax. Physical Exam Vital signs: Vital Signs 04/06/18 14:52 04/06/18 16:17 04/06/18 20:00 Temperature 97.1 F L 97.3 F L Pulse Rate 93 H 91 H 86 Respiratory Rate 18 16 16 Blood Pressure 108/59 L 117/58 L Pulse Oximetry 97 95 96 04/06/18 20:21 04/07/18 00:00 04/07/18 07:45 Temperature 99.5 F Pulse Rate 93 H 76 Respiratory Rate 16 16 Blood Pressure 118/57 L Pulse Oximetry 97 94 L 96 04/07/18 08:00 04/07/18 12:00 Temperature 97.3 F L 98.0 F Pulse Rate 95 H 91 H Respiratory Rate 17 17 Blood Pressure 114/55 L 112/56 L Pulse Oximetry 96 96 Intake & Output 04/06/18 04/07/18 04/07/18 18:59 06:59 18:59 Intake Total 750 / 750 Output Total 940 / 940 30 / 30 Balance -190 / -190 -30 / -30 Intake: IV 100 / 100 Rocephin Inj 1,000 MG In NS Inj 100 / 100 100 ML @ 200 mls/hr IV.SIG Q24H [facility]IN[facility] Rx#:[id number] Oral 650 / 650 Output: Chest Tube Drainage 940 / 940 30 / 30 Right 940 / 940 30 / 30 Other: # Voids 1 2 Narrative: GENERAL: Elderly W/F in no acute distress SKIN: no visible lesions CARDIOVASCULAR: Regular rate and rhythm without murmurs. Grossly normal perfusion. No LE edema RESPIRATORY: Equal breath sounds chest tube in the right lung in place GASTROINTESTINAL: Abdomen soft, non-tender, nondistended MUSCULOSKELETAL: Grossly normal ROM and motor function NEUROLOGICAL: Awake and alert. No obvious cranial nerve deficits. Grossly normal peripheral motor/sensory function PSYCHIATRIC: Appropriate mood and affect Results - Labs CBC & Chem 7: 04/05/18 06:15 04/05/18 06:15 Microbiology 04/04/18 17:55 Blood - Peripheral Aerobic Blood Culture - Preliminary No growth in 3 days 04/04/18 17:55 Blood - Peripheral Anaerobic Blood Culture - Preliminary No growth in 3 days 04/04/18 17:50 Blood - Peripheral Aerobic Blood Culture - Preliminary No growth in 3 days 04/04/18 17:50 Blood - Peripheral Anaerobic Blood Culture - Preliminary No growth in 3 days 03/30/18 10:42 Fluid - Pleural fluid Acid Fast Bacilli Smear - Final No acid fast bacilli seen 03/30/18 10:42 Fluid - Pleural fluid Mycobacterial Culture - Preliminary No growth in 1 week 03/30/18 10:42 Fluid - Pleural fluid Fungal Smear - Final No fungal elements seen 03/30/18 10:42 Fluid - Pleural fluid Fungal Culture - Preliminary No growth in 1 week - Imaging Impressions Chest X-Ray 04/07/18 11:44 CONCLUSION: No recurrent pneumothorax noted on the right. - Procedures thoracentesis of pleural effusion Right lung mass biopsy Chest tube placement 08/21 pneumothorax Assessment and Plan - Assessment (1) Pleural effusion Code(s): J90 - Pleural effusion, not elsewhere classified Status: Acute (2) HTN (hypertension) Code(s): I10 - Essential (primary) hypertension Status: Chronic (3) Rheumatoid arthritis Code(s): M06.9 - Rheumatoid arthritis, unspecified Status: Chronic - Plan Mrs. Pedro is a 82 yo F with: Lung mass/pleural effusion The pt has been following with her PCP for dyspnea and CT showed "fairly extensive pleural based disease and loculated and non-loculated pleural effusion on the right". She was referred to the ED. She was tachycardic with a leukocytosis of 12. Pulmonology and IR consults appreciated. CXR with right pleural effusion S/p thoracentesis 03/30- 1200ml yellowish fluid removed CT chest- no significant change; multiple pleural masses of R lung and mediastinal adenopathy; malignant until proven otherwise Blood cultures negative x5 days Pleural culture negative -Status post empiric CAP treatment with ceftriaxone and azithromycin IV -Pulmonology consulted -follow fluid studies and cytology -CT chest findings concerning for possible malignancy -Continue TID maxime pearl -Patient had lung biopsy done by Dr. Thrasher complicated by right pneumothorax. Chest tube was placed. Management of chest tube per IR. Questionable sepsis -Patient treated empirically for pneumonia. Most likely secondary to lung mass. HTN Impression: Intermittent mild HTN during hospitalization. On home Amlodipine and Lopressor -Continue PRN Vasotec -Continue Amlodipine 10mg daily (increased from home dose) -Continue Metoprolol 25mg BID RA On methotrexate weekly. -continue methotrexate and folate every . Electrolyte abnormalities Hypokalemia/ Hyponatremia on admission; resolved -follow BMP. Improved. PPx: SCDs Plan to initiate chemical PPX 24 hrs after biopsy Dispo: Once chest tube is removed and patient is medically stable she can be discharged home.
--- NOTE | 2018-04-07 17:55 | P.PN ---
Subjective Interval history: She has a chest tube in still. Now to water seal. On O2 2 L .C/O pain in chest. Physical Exam Vital signs: Vital Signs 04/06/18 20:00 04/06/18 20:21 04/07/18 00:00 Temperature 97.3 F L 99.5 F Pulse Rate 86 93 H 76 Respiratory Rate 16 16 16 Blood Pressure 117/58 L 118/57 L Pulse Oximetry 96 97 94 L 04/07/18 07:45 04/07/18 08:00 04/07/18 12:00 Temperature 97.3 F L 98.0 F Pulse Rate 95 H 91 H Respiratory Rate 17 17 Blood Pressure 114/55 L 112/56 L Pulse Oximetry 96 96 96 04/07/18 16:00 Temperature 99.0 F Pulse Rate 97 H Respiratory Rate 17 Blood Pressure 121/65 Pulse Oximetry 94 L Intake & Output 04/06/18 04/07/18 04/07/18 18:59 06:59 18:59 Intake Total 750 / 750 Output Total 940 / 940 30 Balance -190 / -190 -30 / -30 Intake: IV 100 / 100 Rocephin Inj 1,000 MG In NS Inj 100 / 100 100 ML @ 200 mls/hr IV.SIG Q24H [facility]IN[facility] Rx#:[id number] Oral 650 / 650 Output: Chest Tube Drainage 940 / 940 30 / 30 Right 940 / 940 30 / 30 Other: # Voids 1 2 Narrative: GENERAL: Elderly W/F in no acute distress SKIN: no visible lesions CARDIOVASCULAR: Regular rate and rhythm without murmurs. Grossly normal perfusion. No LE edema RESPIRATORY: Equal breath sounds and few crackles. chest tube in the Right chest GASTROINTESTINAL: Abdomen soft, non-tender, nondistended MUSCULOSKELETAL: Grossly normal ROM and motor function NEUROLOGICAL: Awake and alert. No obvious cranial nerve deficits. Grossly normal peripheral motor/sensory function PSYCHIATRIC: Appropriate mood and affect Results - Labs CBC & Chem 7: 04/05/18 06:15 04/05/18 06:15 Microbiology 04/04/18 17:55 Blood - Peripheral Aerobic Blood Culture - Preliminary No growth in 3 days 04/04/18 17:55 Blood - Peripheral Anaerobic Blood Culture - Preliminary No growth in 3 days 04/04/18 17:50 Blood - Peripheral Aerobic Blood Culture - Preliminary No growth in 3 days 04/04/18 17:50 Blood - Peripheral Anaerobic Blood Culture - Preliminary No growth in 3 days 03/30/18 10:42 Fluid - Pleural fluid Acid Fast Bacilli Smear - Final No acid fast bacilli seen 03/30/18 10:42 Fluid - Pleural fluid Mycobacterial Culture - Preliminary No growth in 1 week 03/30/18 10:42 Fluid - Pleural fluid Fungal Smear - Final No fungal elements seen 03/30/18 10:42 Fluid - Pleural fluid Fungal Culture - Preliminary No growth in 1 week - Imaging Impressions Chest X-Ray 04/07/18 11:44 CONCLUSION: No recurrent pneumothorax noted on the right. - Procedures thoracentesis of pleural effusion Right lung mass biopsy Chest tube placement / pneumothorax Assessment and Plan - Assessment (1) Pleural effusion Code(s): J90 - Pleural effusion, not elsewhere classified Status: Acute (2) Pneumonia Code(s): J18.9 - Pneumonia, unspecified organism Status: Acute (3) Rheumatoid arthritis Code(s): M06.9 - Rheumatoid arthritis, unspecified Status: Acute (4) Atrial fibrillation Code(s): I48.91 - Unspecified atrial fibrillation Status: Acute (5) Mass of right lung Code(s): R91.8 - Other nonspecific abnormal finding of lung field Status: Acute - Plan 1. Chest tube to water seal. 2. O2 2 L PRN 3. nebs tid , Duoneb PRN 4. Remove chest tube in am 5. Await cytology results 6. IS at bedside q3h.
[2018-04-08] MEDS: Pantoprazole Sodium 20 MG DR Tablet PO SCH (08:49)
[2018-04-08] MEDS: Lactobacillus Acidophilus/L. Spores Tablet PO SCH (08:49)
[2018-04-08] MEDS: amLODIPine 10 MG Tablet PO SCH (08:50)
[2018-04-08] MEDS: Folic Acid 1 MG Tablet PO SCH (08:50)
[2018-04-08] MEDS: Metoprolol Tartrate 25 MG Tablet PO SCH ×2 (08:50→21:39)
[2018-04-08] MEDS: Ascorbic Acid 500 MG Tablet PO SCH (08:50)
--- NOTE | 2018-04-08 11:33 | XR ---
EXAM DATE: 04/08/2018 11:18 AM EDT AGE/SEX: 82 years / Female INDICATIONS: Pneumothorax, right side chest tube. CLINICAL DATA: This is the patient's subsequent encounter. Patient reports that signs and symptoms h ave been present for 4 - 6 days and indicates a pain score of 0/10. MEDICAL/SURGICAL HISTORY: Hypertension. . right lung biopsy COMPARISON: [facility], CHEST EXPIRATION ONLY, 04/07/2018. . FINDINGS: There is no evidence of pneumothorax on today's examination. A small right-sided chest tube remains u nchanged in position. Right lung nodules are stable. The heart is stable. The left lung is clear. CONCLUSION: No evidence of pneumothorax. Electronically signed by: Orion Butts MD 04/08/2018 11:32 AM EDT
--- NOTE | 2018-04-08 12:19 | P.PN ---
Subjective Interval history: Follow-up pneumothorax. Denies chest pain repeat chest x-ray without pneumothorax plan is to remove chest tube today by IR. Today she complains of right big toe pain history of rheumatoid arthritis. No recent trauma. States she is not able to walk because of pain. Physical Exam Vital signs: Vital Signs 04/07/18 16:00 04/07/18 19:17 04/07/18 20:00 Temperature 99.0 F 99.5 F Pulse Rate 97 H 98 H 103 H Respiratory Rate 17 16 20 Blood Pressure 121/65 127/62 Pulse Oximetry 94 L 90 L 04/08/18 00:00 04/08/18 02:09 04/08/18 04:00 Temperature 97.8 F 98.3 F Pulse Rate 81 77 Respiratory Rate 20 20 Blood Pressure 124/60 102/67 Pulse Oximetry 93 L 93 L 99 04/08/18 07:37 04/08/18 08:00 Temperature 98.4 F Pulse Rate 96 H Respiratory Rate 22 Blood Pressure 148/64 H Pulse Oximetry 95 93 L Intake & Output 04/07/18 04/08/18 04/08/18 18:59 06:59 18:59 Intake Total 600 / 600 Output Total 175 / 175 Balance 425 / 425 Weight 79.3 kg Intake: Oral 600 / 600 Output: Urine 175 / 175 Other: # Voids 5 6 Date of Last Bowel Movement 04/05/18 04/05/18 Narrative: GENERAL: Elderly W/F in no acute distress SKIN: no visible lesions CARDIOVASCULAR: Regular rate and rhythm without murmurs. Grossly normal perfusion. No LE edema RESPIRATORY: Equal breath sounds chest tube in the Right chest GASTROINTESTINAL: Abdomen soft, non-tender, nondistended MUSCULOSKELETAL: Grossly normal ROM and motor function. Patient has podagra NEUROLOGICAL: Awake and alert. No obvious cranial nerve deficits. Grossly normal peripheral motor/sensory function PSYCHIATRIC: Appropriate mood and affect Results - Labs CBC & Chem 7: 04/05/18 06:15 04/05/18 06:15 Microbiology 04/04/18 17:55 Blood - Peripheral Aerobic Blood Culture - Preliminary No growth in 4 days 04/04/18 17:55 Blood - Peripheral Anaerobic Blood Culture - Preliminary No growth in 4 days 04/04/18 17:50 Blood - Peripheral Aerobic Blood Culture - Preliminary No growth in 4 days 04/04/18 17:50 Blood - Peripheral Anaerobic Blood Culture - Preliminary No growth in 4 days - Imaging Impressions Chest X-Ray 04/08/18 10:45 CONCLUSION: No evidence of pneumothorax. - Procedures thoracentesis of pleural effusion Right lung mass biopsy Chest tube placement 08/21 pneumothorax Assessment and Plan - Assessment (1) Pleural effusion Code(s): J90 - Pleural effusion, not elsewhere classified Status: Acute (2) HTN (hypertension) Code(s): I10 - Essential (primary) hypertension Status: Chronic (3) Rheumatoid arthritis Code(s): M06.9 - Rheumatoid arthritis, unspecified Status: Chronic - Plan Mrs. Pedro is a 82 yo F with: Lung mass/pleural effusion The pt has been following with her PCP for dyspnea and CT showed "fairly extensive pleural based disease and loculated and non-loculated pleural effusion on the right". She was referred to the ED. She was tachycardic with a leukocytosis of 12. Pulmonology and IR consults appreciated. CXR with right pleural effusion S/p thoracentesis 03/30- 1200ml yellowish fluid removed CT chest- no significant change; multiple pleural masses of R lung and mediastinal adenopathy; malignant until proven otherwise Blood cultures negative x5 days Pleural culture negative -Status post empiric CAP treatment with ceftriaxone and azithromycin IV -Pulmonology consulted -follow fluid studies and cytology -CT chest findings concerning for possible malignancy -Continue TID maxime pearl -Patient had lung biopsy done by Dr. Thrasher complicated by right pneumothorax which has resolved after chest tube was placed. Repeat chest x-ray negative for pneumothorax plan to remove chest tube today. No plane rides in the near future pt aware Questionable sepsis -Patient treated empirically for pneumonia. Most likely secondary to lung mass. HTN Impression: Intermittent mild HTN during hospitalization. On home Amlodipine and Lopressor -Continue PRN Vasotec -Continue Amlodipine 10mg daily (increased from home dose) -Continue Metoprolol 25mg BID RA On methotrexate weekly. -continue methotrexate and folate every . -Patient has podagra obtain uric acid and right foot x-ray. Trial of ibuprofen and colchicine. PT eval Electrolyte abnormalities Hypokalemia/ Hyponatremia on admission; resolved -follow BMP. Improved. PPx: SCDs Plan to initiate chemical PPX 24 hrs after biopsy Dispo: Once chest tube is removed and patient is medically stable she can be discharged home.
--- NOTE | 2018-04-08 12:28 | P.DS ---
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 The patient states that a week ago from Thursday she started to develop increased work with breathing. She says when she takes deep breath it is harder to take that breath. She has been following up with her primary care doctor who prescribed a Z-Philip and prednisone. The patient had a chest x-ray and then as that was abnormal she obtained a CT scan. Today she was called with the results of her CT scan which showed fluid or pneumonia and was told to come to the emergency department. The patient states that she had pneumonia in her right lung 10 years ago. She denies any fevers. She has not had any mucus production. She has minimal cough. She does endorse clear nasal discharge at times. DS: Diagnosis - Discharge Diagnosis (1) Pleural effusion Status: Acute (2) HTN (hypertension) Status: Chronic (3) Rheumatoid arthritis Status: Chronic DS: Medications - Discharge Medications Prescriptions: amlodipine [Norvasc] 10 mg PO DAILY #30 tab colchicine [Colcrys] 0.6 mg PO BID #6 tab ibuprofen 400 mg PO Q12H PRN #14 tab PRN Reason: Pain tramadol [Ultram] 50 mg PO Q8H PRN #10 tab PRN Reason: Acute Pain DS: Summary Hospital Course: Mrs. Pedro is a 82 yo F with: Lung mass/pleural effusion The pt has been following with her PCP for dyspnea and CT showed "fairly extensive pleural based disease and loculated and non-loculated pleural effusion on the right". She was referred to the ED. She was tachycardic with a leukocytosis of 12. Pulmonology and IR consults appreciated. CXR with right pleural effusion S/p thoracentesis 03/30- 1200ml yellowish fluid removed CT chest- no significant change; multiple pleural masses of R lung and mediastinal adenopathy; malignant until proven otherwise Blood cultures negative x 5 days Pleural culture negative -Status post empiric CAP treatment with ceftriaxone and azithromycin IV -Pulmonology consulted -follow fluid studies and cytology -CT chest findings concerning for possible malignancy path with necrotic tissue. Cytology pending -Continue TID maxime pearl -Patient had lung biopsy done by Dr. Thrasher complicated by right pneumothorax which has resolved after chest tube was placed. Repeat chest x-ray negative for pneumothorax s/p chest tube removal. No plane rides in the near future pt aware Questionable sepsis -Patient treated empirically for pneumonia. Most likely secondary to lung mass. HTN Impression: Intermittent mild HTN during hospitalization. On home Amlodipine and Lopressor -Continue PRN Vasotec -Continue Amlodipine 10mg daily (increased from home dose) -Continue Metoprolol 25mg BID RA On methotrexate weekly. -continue methotrexate and folate every . -Patient has podagra obtain uric acid and right foot x-ray. Trial of ibuprofen and colchicine. PT eval Electrolyte abnormalities Hypokalemia/ Hyponatremia on admission; resolved -follow BMP. Improved. PPx: SCDs Plan to initiate chemical PPX 24 hrs after biopsy Dispo: Once chest tube is removed and patient is medically stable she can be discharged home. - Time Spent with Patient Total time spent providing and/or coordinating discharge services: Greater than 30 minutes - Quality: VTE Deep Vein Thrombosis/Pulmonary Embolism Present on Admission: No Exam Vital signs: Vital Signs 04/07/18 16:00 04/07/18 19:17 04/07/18 20:00 Temperature 99.0 F 99.5 F Pulse Rate 97 H 98 H 103 H Respiratory Rate 17 16 20 Blood Pressure 121/65 127/62 Pulse Oximetry 94 L 90 L 04/08/18 00:00 04/08/18 02:09 04/08/18 04:00 Temperature 97.8 F 98.3 F Pulse Rate 81 77 Respiratory Rate 20 20 Blood Pressure 124/60 102/67 Pulse Oximetry 93 L 93 L 99 04/08/18 07:37 04/08/18 08:00 Temperature 98.4 F Pulse Rate 96 H Respiratory Rate 22 Blood Pressure 148/64 H Pulse Oximetry 95 93 L Intake & Output 04/07/18 04/08/18 04/08/18 18:59 06:59 18:59 Intake Total 600 / 600 Output Total 175 / 175 Balance 425 / 425 Weight 79.3 kg Intake: Oral 600 / 600 Output: Urine 175 / 175 Other: # Voids 5 6 Date of Last Bowel Movement 04/05/18 04/05/18 Results Procedures completed during hospitalization: thoracentesis of pleural effusion Right lung mass biopsy Chest tube placement 2/2 pneumothorax Labs on day of discharge: Preliminary micro results at discharge 04/04/18 17:55 Aerobic Blood Culture - Preliminary Blood - Peripheral No growth in 4 days Anaerobic Blood Culture - Preliminary No growth in 4 days 04/04/18 17:50 Aerobic Blood Culture - Preliminary Blood - Peripheral No growth in 4 days Anaerobic Blood Culture - Preliminary No growth in 4 days 03/30/18 10:42 Mycobacterial Culture - Preliminary Fluid - Pleural fluid No growth in 1 week 03/30/18 10:42 Fungal Culture - Preliminary Fluid - Pleural fluid No growth in 1 week - Impressions ITS Impressions Thoracentesis Ultrasound 03/30/18 00:00 CONCLUSION: 1. Right-sided thoracentesis as above Chest CT 04/01/18 00:00 CONCLUSION: 1. No significant change from one week ago. Multiple pleural-based masses of the right lung and mediastinal adenopathy, malignant until proven otherwise. Moderate to large right pleural effusion. Chest X-Ray 04/08/18 10:45 CONCLUSION: No evidence of pneumothorax. Discharge Plan - Discharge Disposition Patient Disposition: 01 Discharge Home - Discharge Condition Condition: Stable - Discharge Details Discharge Comment: if cleared by PT and XR negative for fx - Physicians Team Primary Care Provider: Michelle Lugo Attending Provider: Christian Ellis Other Providers: Carlos Valente MD ; Stan Lacey MD
--- NOTE | 2018-04-08 12:43 | XR ---
EXAM DATE: 04/08/2018 12:37 PM EDT AGE/SEX: 82 years / Female INDICATIONS: Post chest tube removal. CLINICAL DATA: This is the patient's subsequent encounter. Patient reports that signs and symptoms h ave been present for 4 - 6 days and indicates a pain score of 0/10. MEDICAL/SURGICAL HISTORY: Hypertension. Chest tube, right. rt lung biopsy COMPARISON: [facility], CHEST EXPIRATION ONLY, 04/08/2018. . FINDINGS: The chest tube has been removed. No pneumothorax is noted. Small right pleural effusion is noted. Nod ular densities within the right lung base are stable. The left lung is clear. The heart is stable. CONCLUSION: No pneumothorax status post removal right chest tube. Electronically signed by: Orion Butts MD 04/08/2018 12:42 PM EDT
--- NOTE | 2018-04-08 13:24 | XR ---
EXAM DATE: 04/08/2018 12:38 PM EDT AGE/SEX: 82 years / Female INDICATIONS: Right foot pain and swelling. CLINICAL DATA: This is the patient's sequela encounter. Patient reports that signs and symptoms have been present for 1 day and indicates a pain score of 9/10. MEDICAL/SURGICAL HISTORY: Hypertension. Chest tube, right. rt lung biopsy COMPARISON: [facility], XR FOOT (MIN 3 VIEWS), RIGHT, 08/24/2015. . FINDINGS: Bony structures are intact and in normal alignment. Osseous density is normal. Soft tissues are unre markable. No radiopaque foreign bodies seen. CONCLUSION: No evidence of recent bony injury. Electronically signed by: Sukumar Monte MD 04/08/2018 1:23 PM EDT
--- NOTE | 2018-04-08 15:08 | IR ---
EXAM DATE: 04/08/2018 2:31 PM EDT AGE/SEX: 82 years / Female INDICATIONS: Post biopsy- no pneumo on water seal for 24 hrs, with no airleak/no sob/no complication s. COMPARISON: [facility], CHEST EXPIRATION ONLY, 04/07/2018. . DEVICE(S): Vaseline occlusive dressing gauze and tape PROCEDURE: 1. Chest tube removal. Using aseptic technique the previously placed chest tube was easily removed in one piece and Vaseline gauze and sterile dressing was applied. Chest radiograph is to be obtained. CONCLUSION: 1. Uncomplicated chest tube removal. Electronically signed by: Curt Rothman MD 04/08/2018 3:06 PM EDT
[2018-04-08 15:48] LABS: Baso # (Auto) 0.1 th/mm3 (0.0-0.2); Baso % (Auto) 0.4 % (0.0-2.0); Eos # (Auto) 0.1 th/mm3 (0.0-0.4); Eos % (Auto) 0.4 % (0.0-4.0); Hemoglobin 10.8 gm/dL (11.6-15.3); Lymph # (Auto) 0.6 th/mm3 (1.0-4.8); Lymph % (Auto) 4.5 % (9.0-44.0); Mean Corpuscular HGB Conc 32.7 % (32.0-36.0); Mean Corpuscular Hemoglobin 29.5 pg (27.0-34.0); Mean Corpuscular Volume 90.1 fL (80.0-100.0); Mean Platelet Volume 7.3 fL (7.0-11.0); Mono # (Auto) 0.5 th/mm3 (0.0-0.9); Mono % (Auto) 3.9 % (0.0-8.0); Neut # (Auto) 11.5 th/mm3 (1.8-7.7); Neut % (Auto) 90.8 % (16.0-70.0); Platelet Count 297 th/mm3 (150-450); Red Blood Count 3.66 mil/mm3 (4.00-5.30); Red Cell Distribution Width 13.7 % (11.6-17.2); White Blood Count 12.8 th/mm3 (4.0-11.0)
[2018-04-08 15:56] LABS: Chloride 93 meq/L (98-107); Potassium 3.7 meq/L (3.5-5.1); Sodium 128 meq/L (136-145)
[2018-04-08 15:59] LABS: Anion Gap 8 meq/L (5-15); Blood Urea Nitrogen 11 mg/dL (7-18); Calcium 7.7 mg/dL (8.5-10.1); Carbon Dioxide 26.8 meq/L (21.0-32.0); Glucose,Random 96 mg/dL (74-106)
[2018-04-08 16:03] LABS: Glomerular Filtration Rate Greater Than 89 mL/min (>89)
[2018-04-09] MEDS: Pantoprazole Sodium 20 MG DR Tablet PO SCH (08:37)
[2018-04-09] MEDS: Folic Acid 1 MG Tablet PO SCH (08:37)
[2018-04-09] MEDS: Metoprolol Tartrate 25 MG Tablet PO SCH ×2 (08:37→20:26)
[2018-04-09] MEDS: amLODIPine 10 MG Tablet PO SCH (08:37)
[2018-04-09] MEDS: Lactobacillus Acidophilus/L. Spores Tablet PO SCH (08:37)
[2018-04-09] MEDS: Ascorbic Acid 500 MG Tablet PO SCH (08:37)
--- NOTE | 2018-04-09 09:10 | P.PN ---
Subjective Interval history: Follow-up right foot pain. States pain is slightly better but appears more swollen and red in the forefoot. No fever Physical Exam Vital signs: Vital Signs 04/08/18 12:00 04/08/18 16:00 04/08/18 20:00 Temperature 98 F 99.2 F 99.7 F H Pulse Rate 84 98 H 96 H Respiratory Rate 16 18 20 Blood Pressure 124/68 128/68 132/61 Pulse Oximetry 94 L 96 04/09/18 00:00 04/09/18 07:34 04/09/18 08:00 Temperature 98.9 F 98.5 F Pulse Rate 75 88 84 Respiratory Rate 20 16 20 Blood Pressure 101/55 L 122/68 Pulse Oximetry 94 L 95 96 Intake & Output 04/08/18 04/09/18 04/09/18 18:59 06:59 18:59 Intake Total 300 / 300 Balance 300 / 300 Weight 79.6 kg Intake: Oral 300 / 300 Other: # Voids 3 4 Date of Last Bowel Movement 04/05/18 04/05/18 Narrative: GENERAL: Elderly W/F in no acute distress SKIN: no visible lesions CARDIOVASCULAR: Regular rate and rhythm without murmurs. Grossly normal perfusion. No LE edema RESPIRATORY: Equal breath sounds chest tube in the Right chest GASTROINTESTINAL: Abdomen soft, non-tender, nondistended MUSCULOSKELETAL: Grossly normal ROM and motor function. Forefoot more swollen and red NEUROLOGICAL: Awake and alert. No obvious cranial nerve deficits. Grossly normal peripheral motor/sensory function PSYCHIATRIC: Appropriate mood and affect Results - Labs CBC & Chem 7: 04/09/18 09:45 04/09/18 09:45 Laboratory Results - last 24 hr 04/08/18 12:33 Uric Acid 2.2 L Microbiology 04/04/18 17:55 Blood - Peripheral Aerobic Blood Culture - Preliminary No growth in 4 days 04/04/18 17:55 Blood - Peripheral Anaerobic Blood Culture - Preliminary No growth in 4 days 04/04/18 17:50 Blood - Peripheral Aerobic Blood Culture - Preliminary No growth in 4 days 04/04/18 17:50 Blood - Peripheral Anaerobic Blood Culture - Preliminary No growth in 4 days - Imaging Impressions Chest X-Ray 04/08/18 00:00 CONCLUSION: No pneumothorax status post removal right chest tube. Foot X-Ray 04/08/18 00:00 CONCLUSION: No evidence of recent bony injury. Tunnelled Chest Tube Removal 04/08/18 00:00 CONCLUSION: 1. Uncomplicated chest tube removal. Chest X-Ray 04/08/18 10:45 CONCLUSION: No evidence of pneumothorax. - Procedures thoracentesis of pleural effusion Right lung mass biopsy Chest tube placement 2/ pneumothorax Assessment and Plan - Assessment (1) Pleural effusion Code(s): J90 - Pleural effusion, not elsewhere classified Status: Acute (2) HTN (hypertension) Code(s): I10 - Essential (primary) hypertension Status: Chronic (3) Rheumatoid arthritis Code(s): M06.9 - Rheumatoid arthritis, unspecified Status: Chronic - Plan Mrs. Pedro is a 82 yo F with: Lung mass/pleural effusion The pt has been following with her PCP for dyspnea and CT showed "fairly extensive pleural based disease and loculated and non-loculated pleural effusion on the right". She was referred to the ED. She was tachycardic with a leukocytosis of 12. Pulmonology and IR consults appreciated. CXR with right pleural effusion S/p thoracentesis 03/30- 1200ml yellowish fluid removed CT chest- no significant change; multiple pleural masses of R lung and mediastinal adenopathy; malignant until proven otherwise Blood cultures negative x5 days Pleural culture negative -Status post empiric CAP treatment with ceftriaxone and azithromycin IV -Pulmonology consulted -CT chest findings concerning for possible malignancy. 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 Joseph scheduled this Thursday -Continue TID maxime pearl -Patient had lung biopsy done by Dr. Thrasher complicated by right pneumothorax which has resolved after chest tube was placed. Repeat chest x-ray negative for pneumothorax plan to remove chest tube today. No plane rides in the near future pt aware Questionable sepsis -Patient treated empirically for pneumonia. Most likely secondary to lung mass. HTN Impression: Intermittent mild HTN during hospitalization. On home Amlodipine and Lopressor -Continue PRN Vasotec -Continue Amlodipine 10mg daily (increased from home dose) -Continue Metoprolol 25mg BID RA On methotrexate weekly. -continue methotrexate and folate every . -Swelling and redness has progressed could be cellulitis , CBC, BMP, ESR and CRP. UA low. Start Ancef and ct NSAIDs and colchicine. PT eval HHC vs rehab. FWW Electrolyte abnormalities Hypokalemia/ Hyponatremia on admission; replace with 50 mEq p.o. 1 potassium 3. Check magnesium -follow BMP. Improved. PPx: SCDs Heparin SQ Discharge Planning: HHC vs rehab over weekend
[2018-04-09 09:56] LABS: Baso # (Auto) 0.1 th/mm3 (0.0-0.2); Baso % (Auto) 0.6 % (0.0-2.0); Eos # (Auto) 0.1 th/mm3 (0.0-0.4); Eos % (Auto) 1.2 % (0.0-4.0); Hematocrit 32.2 % (35.0-46.0); Hemoglobin 10.6 gm/dL (11.6-15.3); Lymph # (Auto) 0.7 th/mm3 (1.0-4.8); Lymph % (Auto) 5.9 % (9.0-44.0); Mean Corpuscular Hemoglobin 29.7 pg (27.0-34.0); Mean Corpuscular Volume 90.1 fL (80.0-100.0); Mean Platelet Volume 7.4 fL (7.0-11.0); Mono # (Auto) 0.8 th/mm3 (0.0-0.9); Mono % (Auto) 6.5 % (0.0-8.0); Neut # (Auto) 10.4 th/mm3 (1.8-7.7); Neut % (Auto) 85.8 % (16.0-70.0); Platelet Count 298 th/mm3 (150-450); Red Blood Count 3.58 mil/mm3 (4.00-5.30); White Blood Count 12.1 th/mm3 (4.0-11.0)
[2018-04-09 10:11] LABS: Calcium 8.2 mg/dL (8.5-10.1); Carbon Dioxide 27.6 meq/L (21.0-32.0); Glucose,Random 115 mg/dL (74-106)
[2018-04-09 10:13] LABS: Anion Gap 8 meq/L (5-15); Chloride 94 meq/L (98-107); Sodium 130 meq/L (136-145)
[2018-04-09 10:14] LABS: Blood Urea Nitrogen 13 mg/dL (7-18); Glomerular Filtration Rate Greater Than 89 mL/min (>89)
[2018-04-09 10:21] LABS: C-Reactive Protein 18.9 mg/dL (0.00-0.30)
[2018-04-09 10:59] LABS: Magnesium 1.8 mg/dL (1.5-2.5)
[2018-04-09] MEDS: Ibuprofen 400 MG Tablet PO PRN (16:49)
[2018-04-09] MEDS: Heparin - SQ 10,000 UNITS/ML Vial SQ SCH (20:27)
[2018-04-10] MEDS: Ibuprofen 400 MG Tablet PO PRN (05:49)
[2018-04-10 07:59] VITALS: RESP 16
[2018-04-10] MEDS: Lactobacillus Acidophilus/L. Spores Tablet PO SCH (08:19)
[2018-04-10] MEDS: Pantoprazole Sodium 20 MG DR Tablet PO SCH (08:19)
[2018-04-10] MEDS: amLODIPine 10 MG Tablet PO SCH (08:19)
[2018-04-10] MEDS: Folic Acid 1 MG Tablet PO SCH (08:20)
[2018-04-10] MEDS: Ascorbic Acid 500 MG Tablet PO SCH (08:20)
[2018-04-10] MEDS: Metoprolol Tartrate 25 MG Tablet PO SCH (08:20)
[2018-04-10] MEDS: Heparin - SQ 10,000 UNITS/ML Vial SQ SCH (08:21)
[2018-04-10 08:40] LABS: Baso % (Auto) 0.3 % (0.0-2.0); Eos # (Auto) 0.4 th/mm3 (0.0-0.4); Eos % (Auto) 4.9 % (0.0-4.0); Hematocrit 29.8 % (35.0-46.0); Hemoglobin 10.5 gm/dL (11.6-15.3); Lymph # (Auto) 0.7 th/mm3 (1.0-4.8); Lymph % (Auto) 8.8 % (9.0-44.0); Mean Corpuscular HGB Conc 35.2 % (32.0-36.0); Mean Corpuscular Hemoglobin 31.2 pg (27.0-34.0); Mean Corpuscular Volume 88.5 fL (80.0-100.0); Mean Platelet Volume 8.2 fL (7.0-11.0); Mono # (Auto) 0.5 th/mm3 (0.0-0.9); Mono % (Auto) 6.2 % (0.0-8.0); Neut # (Auto) 6.8 th/mm3 (1.8-7.7); Neut % (Auto) 79.8 % (16.0-70.0); Platelet Count 296 th/mm3 (150-450); Red Blood Count 3.36 mil/mm3 (4.00-5.30); Red Cell Distribution Width 14.3 % (11.6-17.2); White Blood Count 8.4 th/mm3 (4.0-11.0)
[2018-04-10 08:51] LABS: Chloride 99 meq/L (98-107); Potassium 3.7 meq/L (3.5-5.1); Sodium 134 meq/L (136-145)
[2018-04-10 08:56] LABS: Anion Gap 9 meq/L (5-15); Blood Urea Nitrogen 14 mg/dL (7-18); Carbon Dioxide 26.3 meq/L (21.0-32.0); Glucose,Random 83 mg/dL (74-106); Magnesium 1.9 mg/dL (1.5-2.5)
[2018-04-10 08:59] VITALS: BP 116/58; PULSE 79; TEMP 96.4; O2SAT 98
[2018-04-10 09:00] LABS: Glomerular Filtration Rate Greater Than 89 mL/min (>89)
--- NOTE | 2018-04-10 09:05 | P.DCO ---
- Physical Therapy Order: Evaluate and treat, Improve ambulation, Strength and gait training - Case Management Consult Yes - Certification I have seen patient Lyubov Pedro on 04/10/18. My clinical findings support the need for the requested home health care services because: Deconditioned with increased weakness I certify that my clinical findings support that this patient is homebound because: Unsteady gait/balance, Unsafe to leave home unassisted
--- NOTE | 2018-04-10 09:12 | P.DS ---
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 The patient states that a week ago from Thursday she started to develop increased work with breathing. She says when she takes deep breath it is harder to take that breath. She has been following up with her primary care doctor who prescribed a Z-Philip and prednisone. The patient had a chest x-ray and then as that was abnormal she obtained a CT scan. Today she was called with the results of her CT scan which showed fluid or pneumonia and was told to come to the emergency department. The patient states that she had pneumonia in her right lung 10 years ago. She denies any fevers. She has not had any mucus production. She has minimal cough. She does endorse clear nasal discharge at times. DS: Diagnosis - Discharge Diagnosis (1) Rheumatoid arthritis Status: Chronic (2) Pleural effusion Status: Acute (3) HTN (hypertension) Status: Chronic DS: Medications - Discharge Medications Prescriptions: amlodipine [Norvasc] 10 mg PO DAILY #30 tab cephalexin 500 mg PO Q6HR #24 cap colchicine [Colcrys] 0.6 mg PO BID #6 tab ibuprofen 400 mg PO Q12H PRN #14 tab PRN Reason: Pain tramadol [Ultram] 50 mg PO Q8H PRN #10 tab PRN Reason: Acute Pain DS: Summary Hospital Course: Mrs. Pedro is a 82 yo F with: Lung mass/pleural effusion status post thoracentesis and biopsy. 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 Joseph scheduled this Thursday. -Patient had lung biopsy done by Dr. Thrasher complicated by right pneumothorax which has resolved after chest tube was placed and subsequently removed. No plane rides in the near future pt aware HTN Impression: Intermittent mild HTN during hospitalization. On home Amlodipine and Lopressor -Continue PRN Vasotec -Continue Amlodipine 10mg daily (increased from home dose) -Continue Metoprolol 25mg BID RA On methotrexate weekly. -continue methotrexate and folate every . -Right foot swelling, redness and tenderness improved on Ancef, colchicine and ibuprofen. Cellulitis versus arthritis ESR 1 CRP 18 uric acid 2.2. Patient with improved ambulation pending PT eval today for discharge disposition likely will need home care PT. FWW Electrolyte abnormalities Hypokalemia/ Hyponatremia -follow BMP. Improved. PPx: SCDs Heparin SQ - Time Spent with Patient Total time spent providing and/or coordinating discharge services: Greater than 30 minutes - Quality: VTE Deep Vein Thrombosis/Pulmonary Embolism Present on Admission: No Exam Vital signs: Vital Signs 04/09/18 12:00 04/09/18 14:12 04/09/18 16:00 Temperature 98.4 F 98.5 F Pulse Rate 75 83 88 Respiratory Rate 19 16 20 Blood Pressure 115/58 L 127/61 Pulse Oximetry 98 98 04/09/18 20:00 04/09/18 20:25 04/10/18 00:00 Temperature 97.4 F L 96.9 F L Pulse Rate 79 84 74 Respiratory Rate 18 20 18 Blood Pressure 121/55 L 115/56 L Pulse Oximetry 97 97 95 04/10/18 07:58 04/10/18 08:00 Temperature 96.4 F L Pulse Rate 70 79 Respiratory Rate 16 16 Blood Pressure 116/58 L Pulse Oximetry 97 98 Intake & Output 04/09/18 04/10/18 04/10/18 18:59 06:59 18:59 Intake Total 580 / 580 920 / 920 Output Total 602 / 602 Balance - / 919 / 919 Weight 79.3 kg Intake: IV 100 / 100 200 / 200 Ancef Inj 1,000 MG In NS Inj 100 / 100 200 / 200 100 ML @ 200 mls/hr IV.SIG Q8H BELINDA Rx#:[id number] Oral 480 / 480 720 / 720 Output: Urine 600 / 600 Stool 2 / 2 Other: # Voids 3 Date of Last Bowel Movement 04/09/18 04/09/18 # Bowel Movements 1 Narrative: GENERAL: Elderly W/F in no acute distress SKIN: no visible lesions CARDIOVASCULAR: Regular rate and rhythm without murmurs. Grossly normal perfusion. No LE edema RESPIRATORY: Equal breath sounds chest tube in the Right chest GASTROINTESTINAL: Abdomen soft, non-tender, nondistended MUSCULOSKELETAL: Grossly normal ROM and motor function. Forefoot with much improved redness and swelling. NEUROLOGICAL: Awake and alert. No obvious cranial nerve deficits. Grossly normal peripheral motor/sensory function. Ambulating with walker PSYCHIATRIC: Appropriate mood and affect Results Procedures completed during hospitalization: thoracentesis of pleural effusion Right lung mass biopsy Chest tube placement 2/2 pneumothorax Labs on day of discharge: Labs from last 24 hours 04/10/18 04/10/18 04/09/18 07:35 07:35 09:45 CBC w Diff Auto diff final WBC 8.4 RBC 3.36 L Hgb 10.5 L Hct 29.8 L MCV 88.5 MCH 31.2 MCHC 35.2 RDW 14.3 Plt Count 296 MPV 8.2 Neut % (Auto) 79.8 H Lymph % (Auto) 8.8 L [place] % (Auto) 6.2 Eos % (Auto) 4.9 H Baso % (Auto) 0.3 Neut # (Auto) 6.8 Lymph # (Auto) 0.7 L [place] # (Auto) 0.5 Eos # (Auto) 0.4 Baso # (Auto) 0.0 WBC Differential . Differential Comment . ESR Sodium 134 L Potassium 3.7 Chloride 99 Carbon Dioxide 26.3 Anion Gap 9 BUN 14 Creatinine 0.54 Estimated GFR Greater than 89 Random Glucose 83 Lactic Acid 1.2 Calcium 8.0 L Magnesium 1.9 C-Reactive Protein 04/09/18 04/09/18 04/09/18 09:45 09:45 09:45 CBC w Diff Auto diff final WBC 12.1 H RBC 3.58 L Hgb 10.6 L Hct 32.2 L MCV 90.1 MCH 29.7 MCHC 33.0 RDW 14.0 Plt Count 298 MPV 7.4 Neut % (Auto) 85.8 H Lymph % (Auto) 5.9 L [place] % (Auto) 6.5 Eos % (Auto) 1.2 Baso % (Auto) 0.6 Neut # (Auto) 10.4 H Lymph # (Auto) 0.7 L [place] # (Auto) 0.8 Eos # (Auto) 0.1 Baso # (Auto) 0.1 WBC Differential . Differential Comment . ESR 1 Sodium Potassium Chloride Carbon Dioxide Anion Gap BUN Creatinine Estimated GFR Random Glucose Lactic Acid Calcium Magnesium 1.8 C-Reactive Protein 18.90 H 04/09/18 09:45 CBC w Diff WBC RBC Hgb Hct MCV MCH MCHC RDW Plt Count MPV Neut % (Auto) Lymph % (Auto) [place] % (Auto) Eos % (Auto) Baso % (Auto) Neut # (Auto) Lymph # (Auto) [place] # (Auto) Eos # (Auto) Baso # (Auto) WBC Differential Differential Comment ESR Sodium 130 L Potassium 3.0 L Chloride 94 L Carbon Dioxide 27.6 Anion Gap 8 BUN 13 Creatinine 0.58 Estimated GFR Greater than 89 Random Glucose 115 H Lactic Acid Calcium 8.2 L Magnesium C-Reactive Protein Preliminary micro results at discharge 03/30/18 10:42 Mycobacterial Culture - Preliminary Fluid - Pleural fluid No growth in 1 week 03/30/18 10:42 Fungal Culture - Preliminary Fluid - Pleural fluid No growth in 1 week - Impressions ITS Impressions Thoracentesis Ultrasound 03/30/18 00:00 CONCLUSION: 1. Right-sided thoracentesis as above Chest CT 04/01/18 00:00 CONCLUSION: 1. No significant change from one week ago. Multiple pleural-based masses of the right lung and mediastinal adenopathy, malignant until proven otherwise. Moderate to large right pleural effusion. Foot X-Ray 04/08/18 00:00 CONCLUSION: No evidence of recent bony injury. Tunnelled Chest Tube Removal 04/08/18 00:00 CONCLUSION: 1. Uncomplicated chest tube removal. Chest X-Ray 04/08/18 10:45 CONCLUSION: No evidence of pneumothorax. Discharge Plan - Discharge Disposition Patient Disposition: /Home Health Service - Discharge Condition Condition: Stable - Discharge Order Discharge Orders: Discharge Order (Routine); Ordered 04/10/18 Ordered By: Christian Ellis - Discharge Details Discharge Comment: if cleared by PT - Physicians Team Primary Care Provider: Michelle Lugo Attending Provider: Christian Ellis Other Providers: Carlos Valente MD ; Stan Lacey MD
--- NOTE | 2018-04-12 13:42 | CT ---
EXAM DATE: 04/06/2018 9:28 AM EDT AGE/SEX: 82 years / Female INDICATIONS: Right lung mass biopsy. CLINICAL DATA: This is the patient's initial encounter. Patient reports that signs and symptoms have been present for 1 day and indicates a pain score of 0/10. MEDICAL/SURGICAL HISTORY: Gastroesophageal reflux disease. Hypertension. Spleen cancer. Hyste rectomy. Mastoidectomy. COMPARISON: . SEDATION TIME (min): 30 BIOPSY SITE: Right lung MEDICATION(S): 3mg midazolam (Versed) IV 150mcg fentanyl (Sublimaze) IV DEVICE(S): 19 gauge Introducer 20 gauge Temno core biopsy needle . . PROCEDURE: CT guided Right lung biopsy Prior to the procedure informed consent was obtained. Any appropriate prior imaging studies were rev iewed. Using automated exposure control and adjustment of the mA and/or kV according to patient size , radiation dose was kept as low as reasonably achievable to obtain optimal diagnostic quality images . DICOM format image data is available electronically for review and comparison. The site was prepped in a sterile fashion. Full sterile technique was used, including cap, mask, kevin rile gloves and gown and a large sterile sheet. Hand hygiene and 2% chlorhexidine and/or betadine/al cohol prep was utilized per protocol for cutaneous antisepsis. The skin and subcutaneous tissues wer e infiltrated with local anesthetic solution. With CT guidance the previously identified target was localized. Biopsy was performed using the presc ribed needle as above. Adequate hemostasis was obtained with compression at the puncture site. Follow-up CT scan revealed very minimal pneumothorax. Chest x-ray is pending. Conscious sedation was performed with the prescribed dosages and duration as above in the presence of an independent trained radiology nurse to assist in the monitoring of the patient. EKG and oximetry remained stable throughout the procedure. The patient tolerated the procedure well and there were no complications. The patient was sent to PACU in stable condition. Follow-up chest x-ray is pending. CONCLUSION: 1. Uncomplicated CT guided biopsy. Electronically signed by: Christopher Thrasher MD 04/12/2018 1:41 PM EDT
--- NOTE | 2018-04-12 13:44 | CT ---
EXAM DATE: 04/06/2018 11:59 AM EDT AGE/SEX: 82 years / Female INDICATIONS: Right chest tube for pneumothorax, post right lung biopsy. CLINICAL DATA: This is the patient's subsequent encounter. Patient reports that signs and symptoms h ave been present for 1 day and indicates a pain score of 0/10. MEDICAL/SURGICAL HISTORY: Gastroesophageal reflux disease. Hypertension. Spleen cancer. Hyste rectomy. Mastoidectomy. SEDATION TIME (min): 30 MEDICATION(S): 2.5mg midazolam (Versed) IV 125mcg fentanyl (Sublimaze) IV DEVICE(S): 10 Fr Case COMPARISON: [facility], CT BIOPSY LUNG RIGHT, 04/06/2018. . PROCEDURE : CT guided right chest tube placement. The patient is post CT guided biopsy of the right chest. Follow-up chest x-ray 1 hour post procedure demonstrated a right-sided pneumothorax. The risks, benefits and alternatives to the procedure were explained and verbal and written consent w as obtained. The site was prepped in sterile fashion. Full sterile technique was used, including ca p, mask, sterile gloves and gown and a large sterile sheet. Hand hygiene and 2% chlorhexidine and/or betadine/alcohol prep was utilized per protocol for cutaneous antisepsis. The skin and subcutaneous tissues were infiltrated with local anesthetic solution. Using automated exposure control and adjus tment of the mA and/or kV according to patient size, radiation dose was kept as low as reasonably ach ievable to obtain optimal diagnostic quality images. DICOM format image data is available electronic ally for review and comparison. With CT guidance the right chest was punctured and a 10 Qatari catheter was placed in the right thora cic cavity.. The tube was hooked to Pleur-evac suction. Post procedure images demonstrate satisfactor y position of the tube. The catheter was sutured in place and a Percu-Stay was applied. The patient tolerated the procedure well and there were no complications. The patient was sent to pos t anesthesia recovery in stable condition. CONCLUSION: 1. Uncomplicated chest tube placement as above. Electronically signed by: Christopher Thrasher MD 04/12/2018 1:42 PM EDT
== END 2018-04-10 15:17 | disposition home health service (06) ==
LOC: PHED 13:27 → PHEDA 15:32 → PH3 16:10
PROVIDERS: ADMIT Internal Medicine; ATTEND Internal Medicine